=== PATIENT | female | born 1995 | race Caucasian/White ===

== ENCOUNTER 2019-09-16 14:31 | Observation (INO) | payer MEDICAID, SELFPAY | END 2019-09-17 09:05 | disposition home or self-care (01) | PROVIDERS: Admitting Provider Family Medicine; Family Provider Nurse Practitioner Family; Visit Provider Family Medicine | DX: O36.4XX0 Maternal care for intrauterine death, not applicable or unspecified (principal); Z3A.14 14 weeks gestation of pregnancy; Z23 Encounter for immunization ==

== ENCOUNTER 2020-03-14 13:58 | Emergency (ER) | payer MEDICAID, SELFPAY ==
[2020-03-14 14:19] VITALS: BP 138/91; PULSE 94; RESP 18; TEMP 36.6; O2SAT 97; BMI 37.1
--- NOTE | 2020-03-14 15:17 | ED_ITS ---
HPI - Headache General: Chief Complaint: Headache Stated Complaint: dizzy/headache Time Seen by Provider: 03/14/20 15:17 History of Present Illness: MD elicited complaint: headache Onset (ago): day(s) (4 days ago) Onset description: gradually Location: frontal and retro-orbital Severity: mild Pain scale (0-10): 4 Quality & Timing: aching and different than previous headaches Exacerbating factors: other (Headache is worse in the morning) Relieving factors: nothing Context: occurred at rest and other (Patient is also having numbness and tingling in both right and left hands.) Associated symptoms: Deny chest pain, fever(s), nausea, rash or vomiting Treatments prior to arrival: acetaminophen (Patient took Tylenol last night and it did not help.) Review of Systems Const: Denies: fever(s), chills or fatigue Eyes: Denies: change in vision or eye discomfort ENMT: Reports: nasal congestion (Mild); Denies: throat pain, odynophagia or nasal discharge Card: Denies: chest pain, palpitations, edema, swelling of feet/ankles, dyspnea on exertion or orthopnea Resp: Denies: dyspnea, productive cough or non-productive cough GI: Denies: abdominal pain, nausea, vomiting, diarrhea, constipation or hematochezia : Denies: flank pain, dysuria or hematuria Musc: Denies: neck pain, back pain or extremity swelling Skin/Breast: Denies: rash or new lesions Neuro: Reports: headache(s); Denies: numbness in extremities or weakness in extremities PFSH ED PFSH: Social History Smoking and tobacco status: never smoked Female Reproductive History: Date of last menstrual period: 03/07/20 Physical Exam Const: COMMON NORMALS: no acute distress, patient oriented x3 and alert GENERAL APPEARANCE: cooperative and comfortable HENMT: COMMON NORMALS: normocephalic HEAD & SCALP: normocephalic MOUTH: Normal oral and palatal mucosa present THROAT: posterior oropharynx normal and uvula midline Eye: COMMON NORMALS: Equal, round and reactive pupils present, EOMs intact bilaterally, conjunctivae normal and normal visual carlson by confrontation CONJUNCTIVA: Yes conjunctivae normal PUPIL: Yes Equal, round and reactive pupils present Neck/C-Spine: COMMON NORMALS: supple GENERAL: Yes normal visual inspection Resp: COMMON NORMALS: normal respiratory effort, No retractions, No use of accessory muscles and clear to auscultation bilaterally EFFORT & INSPECTION: Yes able to speak in complete sentences, No tachypneic and No respiratory distress AUSCULTATION: clear to auscultation bilaterally Cardio: COMMON NORMALS: regular rate, regular rhythm, S1 normal heart sound present, S2 normal heart sound present, No gallops present (Cardio), No clicks present (Cardio), No murmurs present (Cardio) and Peripheral pulses 2+ through out RATE: regular rate RHYTHM: regular rhythm HEART SOUNDS: S1 normal heart sound present and S2 normal heart sound present PERIPHERAL PULSES: Peripheral pulses 2+ throughout GI: COMMON NORMALS: Normal to inspection, nondistended, normoactive bowel sounds present, Soft to palpation, non-tender and no masses PALPATION: Yes Soft to palpation : COMMON NORMALS: Yes no CVA tenderness BLADDER/KIDNEY EXAM: Yes no CVA tenderness Back/Pelvis: COMMON NORMALS: no CVA tenderness Extremity: COMMON NORMALS: normal to inspection and no pedal edema Neuro: COMMON NORMALS: patient oriented x3, CN's II-XII intact bilaterally, moves all extremities, no focal motor deficits and no sensory deficits noted SENSORIUM/ORIENTATION: Yes alert SENSORY EXAM: Yes extremities (intact) MOTOR EXAM: 5/5 motor strength present throughout Skin: COMMON NORMALS: no rashes or lesions noted GENERAL SKIN EXAM: no rashes or lesions noted and dry skin Course Vital Signs: Vital signs: Vital Signs Temperature 97.8 F 03/14/20 14:19 Pulse Rate 94 03/14/20 14:19 Respiratory Rate 18 03/14/20 14:19 Blood Pressure 138/91 03/14/20 14:19 Pulse Oximetry 97 03/14/20 14:19 MDM - Headache Imaging Data^: CT Head: Attestation: I personally reviewed and interpreted this imaging study as follows: Radiologist's impression: [address] [address] [address] Scan Report Signed Patient: Mayda Johnston Unit #: [id number] : 1995 Age/Sex: 24 / F ADM Date: 03/14/20 Loc: ER Room/Bed: Attending Dr: Ordering Provider/Ordering MD: Walker Oliver Date of Service: 03/14/20 Procedure(s): CT head wo con* [id number] Accession Number(s): [id number] Report Number: [id number] PROCEDURE INFORMATION: Exam: CT Head Without Contrast Exam date and time: 03/14/2020 3:51 PM Age: 24 years old Clinical indication: Pain; Dizziness and visual disturbance and other: Bilat hand tingling; Headache; Additional info: Migraine with numbness/tingling in hands bilat TECHNIQUE: Imaging protocol: Computed tomography of the head without contrast. Axial, coronal and sagittal reformatted images were created and reviewed. Radiation optimization: All CT scans at this facility use at least one of these dose optimization techniques: automated exposure control; mA and/or kV adjustment per patient size (includes targeted exams where dose is matched to clinical indication); or iterative reconstruction. COMPARISON: No relevant prior studies available. RADIATION DOSE METRICS: Total DLP (mGy-cm): 854.79 FINDINGS: Brain: No CT evidence of acute intracranial hemorrhage or acute territorial infarction. No significant mass effect or midline shift. Basal cisterns patent. Ventricles: Normal in size and configuration. Bones/joints: No acute osseous abnormality. Sinuses: Minimal ethmoid mucosal thickening. Mastoid air cells: Grossly unremarkable. Soft tissues: Grossly unremarkable. CT/CT head wo con* [id number]: 1. No CT evidence of acute intracranial pathology. 2. Additional findings, as above. Radiation Dose CTDIVOL = (mGy): DLP = 854.79 (mGy-cm) Dictated By: Trav Borrego MD Signed By: Trav Borrego MD Signed Date/Time: 03/14/201633 DD/ 163 Discharge Plan Discharge Patient Disposition: Home, Self-Care Clinical Impression: Headache Qualifiers: Headache type: unspecified Headache chronicity pattern: acute headache Intractability: not intractable Qualified Code(s): R51 - Headache Condition: Stable Prescriptions: No Action fluoxetine 40 mg Capsule 40 mg PO DAILY RF: 0 Referrals: Camila Sen MD [Primary Care Provider] - Discharge Diet: Regular Discharge Activity: Resume usual activity Patient Instructions: Headache Activity Restrictions/Additional Instructions: Contact your PCP and schedule an appointment for reevaluation in 7 to 10 days. Go home and rest today and drink plenty of fluids. You can take Tylenol or ibuprofen to help with future headaches. As I discussed with you earlier, try taking an [id number] nasal decongestant and/or daily Zyrtec/Claritin. Coding Level of Care Code ED Pipe Puller for Blake Fwd Exam Comprehensive
--- NOTE | 2020-03-14 15:27 | CTR_ITS ---
PROCEDURE INFORMATION: Exam: CT Head Without Contrast Exam date and time: 03/14/2020 3:51 PM Age: 24 years old Clinical indication: Pain; Dizziness and visual disturbance and other: Bilat hand tingling; Headache; Additional info: Migraine with numbness/tingling in hands bilat TECHNIQUE: Imaging protocol: Computed tomography of the head without contrast. Axial, coronal and sagittal reformatted images were created and reviewed. Radiation optimization: All CT scans at this facility use at least one of these dose optimization techniques: automated exposure control; mA and/or kV adjustment per patient size (includes targeted exams where dose is matched to clinical indication); or iterative reconstruction. COMPARISON: No relevant prior studies available. RADIATION DOSE METRICS: Total DLP (mGy-cm): 854.79 FINDINGS: Brain: No CT evidence of acute intracranial hemorrhage or acute territorial infarction. No significant mass effect or midline shift. Basal cisterns patent. Ventricles: Normal in size and configuration. Bones/joints: No acute osseous abnormality. Sinuses: Minimal ethmoid mucosal thickening. Mastoid air cells: Grossly unremarkable. Soft tissues: Grossly unremarkable. CT/CT head wo con* [id number] IMPRESSION: 1. No CT evidence of acute intracranial pathology. 2. Additional findings, as above. Radiation Dose CTDIVOL = (mGy): DLP = 854.79 (mGy-cm)
[2020-03-14] MEDS: ketorolac 30 mg/mL INJ IVP (17:04)
[2020-03-14] MEDS: diphenhydrAMINE 50 mg/mL SDV 1mL 25 MG IVP (17:05)
[2020-03-14] MEDS: metoclopramide 5 mg/mL SDV 2 mL 10 MG IVP (17:05)
[2020-03-14] MEDS: sodium chloride 0.9% 1,000 ML 999 ML IV (17:05)
[2020-03-14] MEDS: dexamethasone 10 mg/mL INJ IVP (17:06)
--- NOTE | 2020-03-14 17:42 | PC.NURSE ---
Patient resting at this time. She reports her headache has improved
--- NOTE | 2020-03-14 17:43 | PC.NURSE ---
Patient to treatment room at this time. Assumed care.
[2020-03-14 18:06] VITALS: BP 120/75; PULSE 70; RESP 15; O2SAT 98
== END 2020-03-14 18:07 | disposition home or self-care (01) ==
PROVIDERS: Emergency Provider Physician Assistant; PCP Family Medicine
DX: R51 Headache (principal)
CPT/HCPCS: 12345; 70450; 96361; 96374; 96375; 99283; J1100; J1200; J1885; J2765; J7030

== ENCOUNTER → 2020-08-29 17:07 | Outpatient (BNVA) | payer SELFPAY | PROVIDERS: PCP Family Medicine | DX: M54.9 Dorsalgia, unspecified (principal); R11.0 Nausea; N39.0 Urinary tract infection, site not specified; R31.9 Hematuria, unspecified | CPT/HCPCS: 81000 ==

== ENCOUNTER 2021-03-21 18:43 | Emergency (ER) | payer MEDICAID, SELFPAY ==
[2021-03-21 18:47] VITALS: BP 130/86; PULSE 97; RESP 16; TEMP 36.8; O2SAT 98; BMI 40.0
== END 2021-03-21 20:53 | disposition left against medical advice (07) ==
DX: Z53.21 Procedure and treatment not carried out due to patient leaving prior to being seen by health care provider (principal)
CPT/HCPCS: 99282

== ENCOUNTER 2021-03-25 19:26 | Emergency (ER) | payer MEDICAID, SELFPAY ==
[2021-03-25 20:36] VITALS: BP 143/80; PULSE 75; RESP 15; TEMP 36.6; O2SAT 98; BMI 40.3
[2021-03-25 22:42] VITALS: BP 137/88; PULSE 76; RESP 16; O2SAT 98
--- NOTE | 2021-03-25 23:12 | USR_ITS ---
PROCEDURE INFORMATION: Exam: US , Transvaginal Exam date and time: 03/25/2021 11:12 PM Age: 25 years old Clinical indication: Lmp or gestational age (in weeks): 6w0d; Antepartum complications; Bleeding; ; Patient HX: ; Additional info: 5 weeks vag bleeding TECHNIQUE: Imaging protocol: Real-time transvaginal obstetrical ultrasound of the maternal pelvis with image documentation. Transvaginal imaging was used for better evaluation of the fetus, adnexa, and/or cervix. COMPARISON: US OB Limited [id number] 09/16/2019 3:05 PM FINDINGS: Gestation: Gestational sac is present. Yolk sac is present. Gestational sac diameter is 1.01 cm. heart rate: The no heart rate. BIOMETRY: Parks-Rump length: There is a pole with a crown-rump length of 0.33 cm. MATERNAL: Right adnexa: Right ovary is normal and measures 2.6 x 1.4 x 2.1 cm. Technologist unable to obtain blood flow at this time. Left adnexa: Left ovary is not visualized. Intraperitoneal space: No free fluid. US/US OB transvaginal [id number] IMPRESSION: 1. Gestational sac is present containing a yolk sac and a pole. Estimated gestational age is 6 weeks/0 days. No heart rate at this time. Consider follow-up examination in 7-10 days. 2. Technologist reports inability to obtain blood flow in the right ovary at this time. However, the ovary is not enlarged or abnormal in appearance. No associated free fluid.
[2021-03-25 23:25] LABS: Add Urine Culture? Yes; Add Urine Microscopic? YES; Bacteria Urine 3+ /hpf; Bilirubin Urine 1+ (Negative); Blood Urine Neg (Negative); Glucose Urine UA Norm (Normal); Ketones Urine 1+ (Negative); Leukocyte Esterase Urine Trace (Negative); Nitrate Urine Negative (Negative); Protein Urine Neg (Negative); RBC Urine 0-4 /hpf (0-2); Urine Appearance SL Hazy (CLEAR); Urine Color Yellow (Yellow); Urobilinogen Urine Norm (Negative); pH Urine 5 (5-7)
--- NOTE | 2021-03-25 23:48 | W.ED.PREGNAN ---
HPI - General: Chief complaint: Vaginal Bleeding Stated complaint: vag bleeding, 5 weeks preg Time Seen by Provider: 03/25/21 23:04 History of Present Illness: HPI Narrative: 25-year-old G5, P1 at 5 weeks of presents with 5 days of vaginal bleeding on and off. The bleeding is small amounts. She has some associated cramping. At first it was bright red, now it is darker. She saw a physician on Friday, and had been placed on progesterone. It seemed to stop for a couple of days, but then came back. She denies any fever. She denies other vaginal discharge. MD Complaint: vaginal bleeding Onset (ago): day(s) (5 on and off) Pain Consistency: intermittent Location: pelvis Severity: moderate Quality: Cramping Radiation: pelvis Relieving factors: none Exacerbating factors: none Vaginal discharge: none Vaginal bleeding: light Date of Last Menstrual Period: 02/15/21 Patient : Yes Number of Weeks : 5 OB History - Previous Pregnancies: miscarriage care: other Associated symptoms: Reports nausea; Deny dysuria, syncope, vaginal discharge or vomiting Review of Systems Const: Denies: fever(s) or chills Card: Denies: syncope Resp: Denies: dyspnea GI: Reports: nausea; Denies: vomiting : Denies: dysuria or vaginal discharge PFSH ED PFSH: Social History Smoking and tobacco status: never smoked Female Reproductive History: Date of last menstrual period: 02/15/21 Physical Exam Const: COMMON NORMALS: no acute distress, patient oriented x3 and alert HENMT: COMMON NORMALS: normocephalic HEAD & SCALP: normocephalic Resp: COMMON NORMALS: normal respiratory effort, No use of accessory muscles and clear to auscultation bilaterally AUSCULTATION: clear to auscultation bilaterally Cardio: COMMON NORMALS: regular rate and regular rhythm RATE: regular rate RHYTHM: regular rhythm GI: COMMON NORMALS: Normal to inspection, nondistended, normoactive bowel sounds present and Soft to palpation PALPATION: Yes Soft to palpation and Yes Tenderness to palpation present (GI) (suprapubic) Neuro: COMMON NORMALS: patient oriented x3 SENSORIUM/ORIENTATION: Yes alert Procedures Perimortem Number of Weeks : 5 Course Vital Signs: Vital signs: Vital Signs Temperature 98 F 03/25/21 20:36 Pulse Rate 80 03/26/21 02:11 Respiratory Rate 18 03/26/21 02:11 Blood Pressure 140/76 03/26/21 02:11 Pulse Oximetry 98 03/25/21 22:42 MDM - OB/Uterine Contractions MDM Narrative: Medical decision making narrative: Ultrasound reveals a 6-week intrauterine consistent with dates. Quant is appropriate. Her potassium is mildly low. She was told to push fluids. Potassium repleted. No cause of vaginal bleeding identified. She will be allowed home on pelvic rest. Lab Data: Labs: Lab Results 03/25/21 03/25/21 03/25/21 Range/Units 23:01 23:35 23:35 WBC 6.8 (4.0-10.0) 10^3/ uL RBC 4.68 (4.1-5.3) 10^6/u L Hgb 11.6 (11.5-15.3) g/dL Hct 36.9 L (37.0-47.0) % MCV 78.8 L (81-99) fL MCH 24.8 L (28.0-34.0) pg MCHC 31.4 (30.0-36.0) g/dL RDW 14.9 (12.1-15.1) % Plt Count 283 (130-400) 10^3/c mm MPV 10.7 H (7.4-10.4) fL Neut % (Auto) 55.0 % Lymph % (Auto) 35.9 % Mccracken % (Auto) 5.6 % Eos % (Auto) 2.8 % Baso % (Auto) 0.4 % Neut # (Auto) 3.76 (1.8-7.7) 10^3/u L Lymph # (Auto) 2.5 (0.8-4.8) 10^3/u L Mccracken # (Auto) 0.4 (0.2-0.9) 10^3/u L Eos # (Auto) 0.2 (0.0-0.8) 10^3/u L Baso # (Auto) 0.0 (0.0-0.1) 10^3/u L Nucleated RBC % (a uto) 0 % Nucleated RBCs # 0.0 /100WBC Sodium Cancelled Potassium Cancelled Chloride Cancelled Carbon Dioxide Cancelled Anion Gap Cancelled BUN Cancelled Creatinine Cancelled GFR Calculation Cancelled Glucose Cancelled Calculated Osmolal ity Cancelled Calcium Cancelled Total Bilirubin Cancelled AST Cancelled ALT Cancelled Alkaline Phosphata se Cancelled Total Protein Cancelled Albumin Cancelled Globulin Cancelled Ser , Tiny i-Qnt Cancelled Urine Color Yellow (Yellow) Urine Appearance Sl hazy (CLEAR) Urine pH 5 (5-7) Ur Specific Gravit y 1.030 (1.005-1.030) Urine Protein Neg (Negative) Urine Glucose (UA) Norm (Normal) Urine Ketones 1+ H (Negative) Urine Blood Neg (Negative) Urine Nitrate Negative (Negative) Urine Bilirubin 1+ H (Negative) Urine Urobilinogen Norm (Negative) mg/dL Ur Leukocyte Rossi ase Trace H (Negative) Urine RBC 0-4 H (0-2) /hpf Urine WBC 5-10 H (0-5) /hpf Ur Squamous Epith Cells 5-10 H (0-5) /hpf Amorphous Sediment Not Reportable Urine Bacteria 3+ H (NONE) /hpf Blood Type Rho(D) Type 03/25/21 03/26/21 Range/Units 23:35 00:35 WBC (4.0-10.0) 10^3/ uL RBC (4.1-5.3) 10^6/u L Hgb (11.5-15.3) g/dL Hct (37.0-47.0) % MCV (81-99) fL MCH (28.0-34.0) pg MCHC (30.0-36.0) g/dL RDW (12.1-15.1) % Plt Count (130-400) 10^3/c mm MPV (7.4-10.4) fL Neut % (Auto) % Lymph % (Auto) % Mccracken % (Auto) % Eos % (Auto) % Baso % (Auto) % Neut # (Auto) (1.8-7.7) 10^3/u L Lymph # (Auto) (0.8-4.8) 10^3/u L Mccracken # (Auto) (0.2-0.9) 10^3/u L Eos # (Auto) (0.0-0.8) 10^3/u L Baso # (Auto) (0.0-0.1) 10^3/u L Nucleated RBC % (a uto) % Nucleated RBCs # /100WBC Sodium 142 Potassium 3.2 L Chloride 111 H Carbon Dioxide 20 L Anion Gap 14.2 BUN 8 Creatinine 0.4 L GFR Calculation 194.5 H Glucose 85 Calculated Osmolal ity 292 Calcium 8.0 L Total Bilirubin 0.2 AST 15 ALT 24 Alkaline Phosphata se 55 Total Protein 6.3 L Albumin 3.7 Globulin 2.6 Ser , Tiny i-Qnt 7492.00 Urine Color (Yellow) Urine Appearance (CLEAR) Urine pH (5-7) Ur Specific Gravit y (1.005-1.030) Urine Protein (Negative) Urine Glucose (UA) (Normal) Urine Ketones (Negative) Urine Blood (Negative) Urine Nitrate (Negative) Urine Bilirubin (Negative) Urine Urobilinogen (Negative) mg/dL Ur Leukocyte Rossi ase (Negative) Urine RBC (0-2) /hpf Urine WBC (0-5) /hpf Ur Squamous Epith Cells (0-5) /hpf Amorphous Sediment Urine Bacteria (NONE) /hpf Blood Type A Positive Rho(D) Type Positive / 4+ Discharge Plan Discharge Patient Disposition: Home Clinical Impression: Threatened , Hypokalemia Condition: Stable Prescriptions: No Action nitrofurantoin macrocrystal 100 mg capsule 100 mg PO BID 7 Days Qty: 14 RF: 0 ondansetron 4 mg tablet,disintegrating 4 mg PO Q6H PRN (Reason: nausea and vomiting) Qty: 12 RF: 0 phenazopyridine [Pyridium] 100 mg tablet 100 mg PO TID Qty: 6 RF: 0 fluoxetine 40 mg Capsule 40 mg PO DAILY RF: 0 Discharge Orders: Discharge ED (Routine); Ordered 03/26/21 Ordered By: Peng Black Discharge Diet: Advance as tolerated Discharge Activity: Limit activity as instructed Activity Restrictions/Additional Instructions: Stay hydrated by pushing fluids for the next 24 to 48 hours. Pelvic rest, meaning no intercourse, no lifting greater than 10 to 15 pounds, and limiting squatting until seen by your doctor. Return for increased vaginal bleeding, soaking 1 pad per hour for more than 3 hours, fever greater than 100, vomiting liquids or medications, other concerning symptoms. You should see your doctor in 48 hours or so to have your blood level checked again Coding Level of Care Code ED Infantry Senior Sergeant for Chg Fwd Exam Detailed
[2021-03-25 23:53] LABS: Basophils % 0.4 %; Eosinophils # 0.2 10^3/uL (0.0-0.8); Eosinophils % 2.8 %; Hematocrit 36.9 % (37.0-47.0); Hemoglobin 11.6 g/dL (11.5-15.3); Lymphocytes # 2.5 10^3/uL (0.8-4.8); Lymphocytes % 35.9 %; Mean Corpuscular HGB Conc 31.4 g/dL (30.0-36.0); Mean Corpuscular Hemoglobin 24.8 pg (28.0-34.0); Mean Corpuscular Volume 78.8 fL (81-99); Mean Platelet Volume 10.7 fL (7.4-10.4); Monocytes # 0.4 10^3/uL (0.2-0.9); Monocytes % 5.6 %; Neutrophils # 3.76 10^3/uL (1.8-7.7); Nucleated Red Blood Cells % 0 %; Platelet Count 283 10^3/cmm (130-400); Red Blood Count 4.68 10^6/uL (4.1-5.3); Red Cell Distribution Width 14.9 % (12.1-15.1); White Blood Count 6.8 10^3/uL (4.0-10.0)
[2021-03-26 01:15] LABS: Alanine Aminotransferase 24 U/L (0-33); Albumin Level 3.7 g/dL (3.5-5.2); Alkaline Phosphatase 55 IU/L (35-105); Anion Gap 14.2 (5-19); Aspartate Amino Transferase 15 U/L (0-32); Blood Urea Nitrogen 8 mg/dL (6-20); Carbon Dioxide 20 mmol/L (22-29); Chloride 111 mmol/L (98-107); Globulin 2.6 g/dL (1.3-4.6); Glomerular Filtration Rate 194.5 mL/min (90-130); Glucose 85 mg/dL (65-115); Osmolality Calculated 292 mOsm/kg (285-295); Potassium 3.2 mmol/L (3.5-5.1); Sodium 142 mmol/L (136-145); Total Bilirubin 0.2 mg/dL (0.15-1.2); Total Protein 6.3 g/dL (6.6-8.7)
[2021-03-26 02:11] VITALS: BP 140/76; PULSE 80; RESP 18
== END 2021-03-26 02:13 | disposition home or self-care (01) ==
PROVIDERS: Nurse Practitioner Family; Emergency Provider Emergency Medicine
DX: O20.0 Threatened abortion (principal); E87.5 Hyperkalemia; O26.891 Other specified pregnancy related conditions, first trimester; Z3A.01 Less than 8 weeks gestation of pregnancy
CPT/HCPCS: 76817; 80053; 81001; 84702; 85025; 86900; 87077; 87086; 87186; 99283

== ENCOUNTER 2021-06-19 22:20 | Emergency (ER) | payer MEDICAID, SELFPAY ==
[2021-06-19 23:02] VITALS: BP 155/86; PULSE 91; RESP 20; TEMP 36.9; O2SAT 99; BMI 40.2
--- NOTE | 2021-06-19 23:23 | W.ED.ABDPA2 ---
Documented by User: BRANDON Nielsen 06/20/21 00:39 HPI - Abdominal Pain General: Chief Complaint: Abdominal Pain Stated Complaint: 18 Weeks Preg\Abd Pain Time Seen by Provider: 06/19/21 23:23 History of Present Illness: HPI narrative: 25-year-old female comes in today with complaints of left flank pain. Patient reports for the last 2 days she has had pain in the left flank radiating around to her abdomen. Patient did have a UTI about 1 week ago. Patient is 18 weeks . Patient denies any vaginal bleeding or vaginal discharge. Patient appears well. Patient appears in mild to moderate pain. Related Data: Date of Last Menstrual Period: 02/15/21 Review of Systems General: Reports: 10 or more systems reviewed and unremarkable except in HPI and below : Reports: flank pain [facility] ED PFSH: Medical History (Updated 06/20/21 @ 00:36 by BRANDON Nielsen) Psychiatric care Social History Smoking and tobacco status: never smoked Female Reproductive History: Date of last menstrual period: 02/15/21 Physical Exam Const: COMMON NORMALS: no acute distress and patient oriented x3 GENERAL APPEARANCE: cooperative HENMT: COMMON NORMALS: normocephalic and Normal external nose present HEAD & SCALP: normal to inspection and normocephalic NOSE: Normal external nose present MOUTH: Normal oral and palatal mucosa present Eye: GENERAL EYE: appearance normal, both eyes and all related structures Neck/C-Spine: COMMON NORMALS: full ROM Lymph: LYMPHATIC: no lymphadenopathy noted Chest: COMMONS NORMALS: normal inspection of the chest Resp: COMMON NORMALS: normal respiratory effort EFFORT & INSPECTION: Yes able to speak in complete sentences Cardio: COMMON NORMALS: regular rate and regular rhythm RATE: regular rate RHYTHM: regular rhythm GI: COMMON NORMALS: non-tender : BLADDER/KIDNEY EXAM: Yes CVA tenderness on the left Back/Pelvis: COMMON NORMALS: thoracic and lumbar spine normal to inspection GENERAL BACK: Yes CVA tenderness Extremity: COMMON NORMALS: normal to inspection Neuro: COMMON NORMALS: patient oriented x3 and moves all extremities Psych: COMMON NORMALS: mental status grossly normal and cooperative Skin: COMMON NORMALS: no rashes or lesions noted GENERAL SKIN EXAM: no rashes or lesions noted Course Vital Signs: Vital signs: Vital Signs Temperature 98.4 F 06/19/21 23:02 Pulse Rate 85 06/20/21 00:58 Respiratory Rate 20 H 06/19/21 23:02 Blood Pressure 155/86 06/19/21 23:02 Pulse Oximetry 98 06/20/21 00:58 MDM - Abdominal Pain MDM Narrative: Medical decision making narrative: Patient presents today with some left flank pain starting last night. Patient is 18 weeks . Patient appears well. Patient reports that she has been on some Macrodantin for the last 3 to 4 days for a urinary tract infection. Patient reports movement exacerbates pain. Skin is warm and dry. Vital signs are normal. Differential diagnosis includes but not limited to round ligament pain, muscle strain, renal calculi, pyelonephritis. Laboratory values are unremarkable. Urinalysis has a large amount of skin cells but does also have traces of white blood cells and red blood cells. Ultrasound of the kidneys indicated no hydronephrosis or signs of stones. Patient is really tender in that area on palpation I suspect she has a muscle strain versus some round ligament pain. I encouraged patient to drink plenty of fluids she may use Tylenol as needed for breakthrough pain. I discussed red flags for return to the ER. Patient reported understanding and agreed to plan. Lab Data: Labs: Lab Results 06/19/21 06/19/21 06/19/21 23:59 23:59 23:59 WBC 9.0 10^3/uL 10^3/ uL (4.0-10.0) RBC 4.43 10^6/uL 10^6 /uL (4.1-5.3) Hgb 11.5 g/dL g/dL (11.5-15.3) Hct 35.0 % L % (37.0-47.0) MCV 79.0 fl L fl (81-99) MCH 26.0 pg L pg (28.0-34.0) MCHC 32.9 g/dL g/dL (30.0-36.0) RDW 15.0 % % (12.1-15.1) Plt Count 256 10^3/cmm 10^3 /cmm (130-400) MPV 10.5 fL H fL (7.4-10.4) Neut % (Auto) 64.3 % % Lymph % (Auto) 28.4 % % [place] % (Auto) 5.9 % % Eos % (Auto) 0.8 % % Baso % (Auto) 0.3 % % Neut # (Auto) 5.81 10^3/uL 10^3 /uL (1.8-7.7) Lymph # (Auto) 2.6 10^3/uL 10^3/ uL (0.8-4.8) [place] # (Auto) 0.5 10^3/uL 10^3/ uL (0.2-0.9) Eos # (Auto) 0.1 10^3/uL 10^3/ uL (0.0-0.8) Baso # (Auto) 0.0 10^3/uL 10^3/ uL (0.0-0.1) Nucleated RBC % (a uto) 0 % % Nucleated RBCs # 0.0 /100WBC /100W BC Sodium 137 mmol/L mmol/L (136-145) Potassium 3.4 mmol/L L mmol /L (3.5-5.1) Chloride 103 mmol/L mmol/L (98-107) Carbon Dioxide 22 mmol/L mmol/L (22-29) Anion Gap 15.4 (5-19) BUN 4 mg/dL L mg/dL (6-20) Creatinine 0.2 mg/dL L mg/dL (0.5-0.9) GFR Calculation 432.8 mL/min H mL /min (90-130) Glucose 91 mg/dL mg/dL (65-115) Calculated Osmolal ity 280 mOsm/kg L mOs m/kg (285-295) Calcium 9.3 mg/dL mg/dL (8.5-10.5) Total Bilirubin 0.2 mg/dL mg/dL (0.15-1.2) AST 10 U/L U/L (0-32) ALT 11 U/L U/L (0-33) Alkaline Phosphata se 64 IU/L IU/L (35-105) Total Protein 7.2 g/dL g/dL (6.6-8.7) Albumin 3.6 g/dL g/dL (3.5-5.2) Globulin 3.6 g/dL g/dL (1.3-4.6) Lipase 21 U/L U/L (13-60) Urine Color Corrine (Yellow) Urine Appearance Clear (CLEAR) Urine pH 5 (5-7) Ur Specific Gravit y 1.030 (1.005-1.030) Urine Protein Neg (Negative) Urine Glucose (UA) Norm (Normal) Urine Ketones 1+ H (Negative) Urine Blood Neg (Negative) Urine Nitrate Negative (Negative) Urine Bilirubin 1+ H (Negative) Urine Urobilinogen 1 mg/dL H mg/dL (Negative) Ur Leukocyte Rossi ase Trace H (Negative) Urine RBC 5-10 /hpf H /hpf (0-2) Urine WBC 0-4 /hpf H /hpf (0-5) Ur Squamous Epith Cells 10-15 /hpf H /hpf (0-5) Amorphous Sediment 2+ /hpf /hpf Urine Bacteria 2+ /hpf H /hpf (NONE) Urine Mucus 1+ /hpf /hpf Discharge Plan Discharge Patient Disposition: Home Clinical Impression: Left flank pain, Second trimester Condition: Stable Prescriptions: No Action nitrofurantoin macrocrystal 100 mg capsule 100 mg PO BID 7 Days Qty: 14 RF: 0 ondansetron 4 mg tablet,disintegrating 4 mg PO Q6H PRN (Reason: nausea and vomiting) Qty: 12 RF: 0 phenazopyridine [Pyridium] 100 mg tablet 100 mg PO TID Qty: 6 RF: 0 fluoxetine 40 mg Capsule 40 mg PO DAILY RF: 0 Discharge Orders: Discharge ED (Routine); Ordered 06/20/21 Ordered By: Deshawn Du Discharge Diet: Usual diet Discharge Activity: Increase activity as tolerated Patient Instructions: Abdominal Pain (ED), Opioid Safety Activity Restrictions/Additional Instructions: Plenty of fluids. Monitor for blood in vomit or stool. Monitor for high fever greater than 100.4. If you have any of these symptoms please return to the ER. Follow-up with primary care as needed. Return to the ER for new concerns or worsening symptoms. Stand Alone Forms: Work/School Release Coding Level of Care Code ED Marketing Writer for [employer] Fwd Exam Comprehensive Documented by User: Karma Monaco MD 06/20/21 05:29 HPI - Abdominal Pain General: Chief Complaint: Abdominal Pain Stated Complaint: 18 Weeks Preg\Abd Pain Time Seen by Provider: 06/19/21 23:23 [facility] ED [facility]: Medical History (Updated 06/20/21 @ 00:36 by BRANDON Nielsen) Psychiatric care Social History Smoking and tobacco status: never smoked Course Vital Signs: Vital signs: Vital Signs Temperature 98.4 F 06/19/21 23:02 Pulse Rate 85 06/20/21 00:58 Respiratory Rate 20 H 06/19/21 23:02 Blood Pressure 155/86 06/19/21 23:02 Pulse Oximetry 98 06/20/21 00:58 MDM - Abdominal Pain Lab Data: Labs: Lab Results 06/19/21 06/19/21 06/19/21 23:59 23:59 23:59 WBC 9.0 10^3/uL 10^3/ uL (4.0-10.0) RBC 4.43 10^6/uL 10^6 /uL (4.1-5.3) Hgb 11.5 g/dL g/dL (11.5-15.3) Hct 35.0 % L % (37.0-47.0) MCV 79.0 fl L fl (81-99) MCH 26.0 pg L pg (28.0-34.0) MCHC 32.9 g/dL g/dL (30.0-36.0) RDW 15.0 % % (12.1-15.1) Plt Count 256 10^3/cmm 10^3 /cmm (130-400) MPV 10.5 fL H fL (7.4-10.4) Neut % (Auto) 64.3 % % Lymph % (Auto) 28.4 % % [place] % (Auto) 5.9 % % Eos % (Auto) 0.8 % % Baso % (Auto) 0.3 % % Neut # (Auto) 5.81 10^3/uL 10^3 /uL (1.8-7.7) Lymph # (Auto) 2.6 10^3/uL 10^3/ uL (0.8-4.8) [place] # (Auto) 0.5 10^3/uL 10^3/ uL (0.2-0.9) Eos # (Auto) 0.1 10^3/uL 10^3/ uL (0.0-0.8) Baso # (Auto) 0.0 10^3/uL 10^3/ uL (0.0-0.1) Nucleated RBC % (a uto) 0 % % Nucleated RBCs # 0.0 /100WBC /100W BC Sodium 137 mmol/L mmol/L (136-145) Potassium 3.4 mmol/L L mmol /L (3.5-5.1) Chloride 103 mmol/L mmol/L (98-107) Carbon Dioxide 22 mmol/L mmol/L (22-29) Anion Gap 15.4 (5-19) BUN 4 mg/dL L mg/dL (6-20) Creatinine 0.2 mg/dL L mg/dL (0.5-0.9) GFR Calculation 432.8 mL/min H mL /min (90-130) Glucose 91 mg/dL mg/dL (65-115) Calculated Osmolal ity 280 mOsm/kg L mOs m/kg (285-295) Calcium 9.3 mg/dL mg/dL (8.5-10.5) Total Bilirubin 0.2 mg/dL mg/dL (0.15-1.2) AST 10 U/L U/L (0-32) ALT 11 U/L U/L (0-33) Alkaline Phosphata se 64 IU/L IU/L (35-105) Total Protein 7.2 g/dL g/dL (6.6-8.7) Albumin 3.6 g/dL g/dL (3.5-5.2) Globulin 3.6 g/dL g/dL (1.3-4.6) Lipase 21 U/L U/L (13-60) Urine Color Corrine (Yellow) Urine Appearance Clear (CLEAR) Urine pH 5 (5-7) Ur Specific Gravit y 1.030 (1.005-1.030) Urine Protein Neg (Negative) Urine Glucose (UA) Norm (Normal) Urine Ketones 1+ H (Negative) Urine Blood Neg (Negative) Urine Nitrate Negative (Negative) Urine Bilirubin 1+ H (Negative) Urine Urobilinogen 1 mg/dL H mg/dL (Negative) Ur Leukocyte Rossi ase Trace H (Negative) Urine RBC 5-10 /hpf H /hpf (0-2) Urine WBC 0-4 /hpf H /hpf (0-5) Ur Squamous Epith Cells 10-15 /hpf H /hpf (0-5) Amorphous Sediment 2+ /hpf /hpf Urine Bacteria 2+ /hpf H /hpf (NONE) Urine Mucus 1+ /hpf /hpf Discharge Plan Discharge Patient Disposition: Home Clinical Impression: Left flank pain, Second trimester Condition: Stable Prescriptions: No Action nitrofurantoin macrocrystal 100 mg capsule 100 mg PO BID 7 Days Qty: 14 RF: 0 ondansetron 4 mg tablet,disintegrating 4 mg PO Q6H PRN (Reason: nausea and vomiting) Qty: 12 RF: 0 phenazopyridine [Pyridium] 100 mg tablet 100 mg PO TID Qty: 6 RF: 0 fluoxetine 40 mg Capsule 40 mg PO DAILY RF: 0 Discharge Orders: Discharge ED (Routine); Ordered 06/20/21 Ordered By: Deshawn Du Discharge Diet: Usual diet Discharge Activity: Increase activity as tolerated Patient Instructions: Abdominal Pain (ED), Opioid Safety Activity Restrictions/Additional Instructions: Plenty of fluids. Monitor for blood in vomit or stool. Monitor for high fever greater than 100.4. If you have any of these symptoms please return to the ER. Follow-up with primary care as needed. Return to the ER for new concerns or worsening symptoms. 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
[2021-06-20 00:02] LABS: Basophils % 0.3 %; Eosinophils # 0.1 10^3/uL (0.0-0.8); Eosinophils % 0.8 %; Hemoglobin 11.5 g/dL (11.5-15.3); Lymphocytes # 2.6 10^3/uL (0.8-4.8); Lymphocytes % 28.4 %; Mean Corpuscular HGB Conc 32.9 g/dL (30.0-36.0); Mean Platelet Volume 10.5 fL (7.4-10.4); Monocytes # 0.5 10^3/uL (0.2-0.9); Monocytes % 5.9 %; Neutrophils # 5.81 10^3/uL (1.8-7.7); Neutrophils % 64.3 %; Nucleated Red Blood Cells % 0 %; Platelet Count 256 10^3/cmm (130-400); Red Blood Count 4.43 10^6/uL (4.1-5.3)
--- NOTE | 2021-06-20 00:13 | USR_ITS ---
PROCEDURE INFORMATION: Exam: US Retroperitoneal; Complete; Kidneys and Bladder Exam date and time: 06/20/2021 12:13 AM Age: 25 years old Clinical indication: Abdominal pain; ; Additional info: Left flank pain, concern for calculi, 18 weeks preg TECHNIQUE: Imaging protocol: Real-time ultrasound of the retroperitoneum with image documentation. Complete exam focused on the kidneys and bladder. COMPARISON: US Abdomen* [id number] 10/01/2016 7:29 AM FINDINGS: The right kidney measures 11.4 cm in length. The left kidney measures 11.4. cm in length. There is no significant hydronephrosis or perinephric fluid. Neither ureter is visible or dilated. The renal parenchymal thickness and echogenicity are within normal limits. There is no sonographically visible renal calculus, mass, or cyst. The urinary bladder is almost empty, limiting evaluation at this time. US/US renal BI* [id number] IMPRESSION: 1. Essentially unremarkable sonographic appearance of the kidneys, no significant hydronephrosis. 2. Other details/findings discussed above.
[2021-06-20 00:17] LABS: Urine Appearance Clear (CLEAR); Urine Color Amber (Yellow); pH Urine 5 (5-7)
[2021-06-20 00:18] LABS: Add Urine Culture? No; Add Urine Microscopic? YES; Amorphous Sediment Urine 2+ /hpf; Bacteria Urine 2+ /hpf; Bilirubin Urine 1+ (Negative); Blood Urine Neg (Negative); Glucose Urine UA Norm (Normal); Ketones Urine 1+ (Negative); Leukocyte Esterase Urine Trace (Negative); Mucus Urine 1+ /hpf; Nitrate Urine Negative (Negative); Protein Urine Neg (Negative); Urobilinogen Urine 1 mg/dL (Negative); WBC Urine 0-4 /hpf (0-5)
[2021-06-20 00:29] LABS: Alanine Aminotransferase 11 U/L (0-33); Albumin Level 3.6 g/dL (3.5-5.2); Alkaline Phosphatase 64 IU/L (35-105); Anion Gap 15.4 (5-19); Aspartate Amino Transferase 10 U/L (0-32); Blood Urea Nitrogen 4 mg/dL (6-20); Calcium 9.3 mg/dL (8.5-10.5); Carbon Dioxide 22 mmol/L (22-29); Chloride 103 mmol/L (98-107); Globulin 3.6 g/dL (1.3-4.6); Glomerular Filtration Rate 432.8 mL/min (90-130); Glucose 91 mg/dL (65-115); Lipase 21 U/L (13-60); Osmolality Calculated 280 mOsm/kg (285-295); Potassium 3.4 mmol/L (3.5-5.1); Sodium 137 mmol/L (136-145); Total Bilirubin 0.2 mg/dL (0.15-1.2); Total Protein 7.2 g/dL (6.6-8.7)
[2021-06-20 00:58] VITALS: PULSE 85; O2SAT 98
== END 2021-06-20 01:02 | disposition home or self-care (01) ==
PROVIDERS: Emergency Medicine; Emergency Provider Nurse Practitioner Family
DX: O26.892 Other specified pregnancy related conditions, second trimester (principal); R10.9 Unspecified abdominal pain; Z3A.18 18 weeks gestation of pregnancy
CPT/HCPCS: 76770; 80053; 81001; 81003; 83690; 85025; 99283

== ENCOUNTER 2021-09-11 12:03 | Outpatient (CLI) | payer MEDICAID, SELFPAY ==
[2021-09-11 12:20] VITALS: BMI 41.0
[2021-09-11 12:21] VITALS: RESP 18; TEMP 36.6
[2021-09-11 12:28] VITALS: BP 128/81; PULSE 91
[2021-09-11 12:58] VITALS: BP 116/70; PULSE 88
[2021-09-11 13:16] VITALS: BP 116/70; PULSE 88
[2021-09-11 13:29] LABS: Total Volume, Urine 2400 mL
[2021-09-11 13:42] LABS: Urine Total Protein 6.3 mg/24HR (0-150); Urine Total Protein 24 Hour 151.2 mg/dL (0-150)
--- NOTE | 2021-09-11 13:50 | PC.NURSE ---
DR JOAQUIN CALLED WITH 24 HOUR URINE PROTEIN RESULT. NO FURTHER ORDERS
== END 2021-09-11 13:16 | disposition home or self-care (01) ==
LOC: OPOB 12:12 → OBGYN 12:13
PROVIDERS: Visit Provider Family Medicine
DX: O16.9 Unspecified maternal hypertension, unspecified trimester (principal); Z3A.00 Weeks of gestation of pregnancy not specified
CPT/HCPCS: 59025; 84156; 99211

== ENCOUNTER 2021-09-25 15:42 | Outpatient (CLI) | payer MEDICAID, SELFPAY ==
[2021-09-25 16:00] VITALS: BP 134/82; PULSE 96; TEMP 35.9
[2021-09-25 16:01] VITALS: RESP 16
[2021-09-25 16:05] VITALS: BMI 41.6
[2021-09-25 16:20] VITALS: BP 143/86; PULSE 106
== END 2021-09-25 16:31 | disposition home or self-care (01) ==
LOC: OPOB 15:50 → OBGYN 15:51
PROVIDERS: Visit Provider Family Medicine
DX: O16.9 Unspecified maternal hypertension, unspecified trimester (principal); Z3A.00 Weeks of gestation of pregnancy not specified
CPT/HCPCS: 59025; 99211

== ENCOUNTER 2021-09-28 16:20 | Outpatient (CLI) | payer MEDICAID, SELFPAY ==
[2021-09-28 16:42] VITALS: BP 140/89; PULSE 87
[2021-09-28 16:46] VITALS: RESP 18; TEMP 36.5
[2021-09-28 16:57] VITALS: BP 140/89; PULSE 88
== END 2021-09-28 17:10 | disposition home or self-care (01) ==
LOC: OPOB 16:28 → OBGYN 16:29
PROVIDERS: Visit Provider Family Medicine
DX: O16.9 Unspecified maternal hypertension, unspecified trimester (principal); Z3A.00 Weeks of gestation of pregnancy not specified
CPT/HCPCS: 59025; 99211

== ENCOUNTER 2021-10-02 12:30 | Outpatient (CLI) | payer MEDICAID, SELFPAY ==
[2021-10-02] VITALS (11 sets, daily range): BP systolic 122–164; BP diastolic 72–95; PULSE 82–102; BMI 42.9
[2021-10-02 14:34] LABS: Basophils % 0.1 %; Eosinophils # 0.1 10^3/uL (0.0-0.8); Eosinophils % 0.6 %; Hematocrit 29.7 % (37.0-47.0); Hemoglobin 9.7 g/dL (11.5-15.3); Lymphocytes # 1.5 10^3/uL (0.8-4.8); Lymphocytes % 19.2 %; Mean Corpuscular HGB Conc 32.7 g/dL (30.0-36.0); Mean Corpuscular Hemoglobin 25.6 pg (28.0-34.0); Mean Corpuscular Volume 78.4 fl (81-99); Mean Platelet Volume 10.4 fL (7.4-10.4); Monocytes # 0.5 10^3/uL (0.2-0.9); Monocytes % 6.2 %; Neutrophils # 5.83 10^3/uL (1.8-7.7); Neutrophils % 73.5 %; Nucleated Red Blood Cells % 0 %; Platelet Count 199 10^3/cmm (130-400); Red Blood Count 3.79 10^6/uL (4.1-5.3); Red Cell Distribution Width 14.5 % (12.1-15.1); White Blood Count 7.9 10^3/uL (4.0-10.0)
[2021-10-02 14:45] LABS: Glucose Urine UA Norm (Normal); Ketones Urine Negative (Negative); Protein Urine Neg (Negative); Urine Appearance Hazy (CLEAR); Urine Color Yellow (Yellow); pH Urine 6.5 (5-7)
[2021-10-02 14:46] LABS: Add Urine Microscopic? YES; Bilirubin Urine Neg (Negative); Blood Urine Neg (Negative); Leukocyte Esterase Urine Negative (Negative); Nitrate Urine Negative (Negative); Urobilinogen Urine Neg (Negative)
[2021-10-02 14:59] LABS: Add Urine Culture? Yes; Bacteria Urine 2+ /hpf; RBC Urine 0-4 /hpf (0-2)
[2021-10-02 15:03] LABS: Alanine Aminotransferase 7 U/L (0-33); Albumin Level 3.4 g/dL (3.5-5.2); Alkaline Phosphatase 94 IU/L (35-105); Anion Gap 13.5 (5-19); Aspartate Amino Transferase 10 U/L (0-32); Blood Urea Nitrogen 3 mg/dL (6-20); Calcium 8.4 mg/dL (8.5-10.5); Carbon Dioxide 25 mmol/L (22-29); Chloride 101 mmol/L (98-107); Globulin 2.6 g/dL (1.3-4.6); Glomerular Filtration Rate 271.1 mL/min (90-130); Glucose 85 mg/dL (65-115); Osmolality Calculated 278 mOsm/kg (285-295); Potassium 3.5 mmol/L (3.5-5.1); Sodium 136 mmol/L (136-145); Total Bilirubin 0.2 mg/dL (0.15-1.2); Uric Acid 4.8 mg/dL (2.4-5.7)
[2021-10-02 15:27] LABS: Urine Creatinine 46 mg/dL (28-217); Urine Protein Random 5 mg/dL
[2021-10-02 15:30] LABS: UPRO/UCREAT Ratio 0.11 mg/mg CR
== END 2021-10-02 15:44 | disposition home or self-care (01) ==
LOC: OPOB 12:37 → OBGYN 12:39
PROVIDERS: Visit Provider Family Medicine
DX: O26.899 Other specified pregnancy related conditions, unspecified trimester (principal); Z3A.00 Weeks of gestation of pregnancy not specified
CPT/HCPCS: 59025; 80053; 81001; 82570; 84156; 84550; 85025; 87086; 99211

== ENCOUNTER 2021-10-05 16:00 | Outpatient (CLI) | payer MEDICAID, SELFPAY ==
[2021-10-05 16:00] VITALS: BMI 42.4
[2021-10-05 16:05] VITALS: TEMP 35.8
[2021-10-05 16:06] VITALS: BP 145/73; RESP 18
[2021-10-05 16:25] VITALS: BP 117/71; PULSE 85
[2021-10-05 16:39] VITALS: BP 117/71; PULSE 85; RESP 18; TEMP 36.1
== END 2021-10-05 16:40 | disposition home or self-care (01) ==
LOC: OPOB 16:03 → OBGYN 16:05
PROVIDERS: Visit Provider Family Medicine
DX: Z87.59 Personal history of other complications of pregnancy, childbirth and the puerperium (principal)
CPT/HCPCS: 59025; 99211

== ENCOUNTER 2021-10-09 12:55 | Outpatient (CLI) | payer MEDICAID, SELFPAY ==
[2021-10-09 12:55] VITALS: BMI 42.5
[2021-10-09 13:16] VITALS: BP 139/90; PULSE 93
[2021-10-09 13:31] VITALS: BP 128/77; PULSE 85
[2021-10-09 13:47] VITALS: BP 126/76; PULSE 81
== END 2021-10-09 13:54 | disposition home or self-care (01) ==
LOC: OPOB 12:59 → OBGYN 13:00
PROVIDERS: Visit Provider Family Medicine
DX: O16.9 Unspecified maternal hypertension, unspecified trimester (principal); Z3A.00 Weeks of gestation of pregnancy not specified
CPT/HCPCS: 59025

== ENCOUNTER 2021-10-12 13:40 | Outpatient (CLI) | payer MEDICAID, SELFPAY ==
[2021-10-12 13:40] VITALS: BMI 42.9
[2021-10-12 14:03] VITALS: BP 143/79; PULSE 96
[2021-10-12 14:18] VITALS: BP 147/79; PULSE 97
== END 2021-10-12 14:27 | disposition home or self-care (01) ==
LOC: OPOB 13:41 → OBGYN 13:48
PROVIDERS: Visit Provider Family Medicine
DX: O24.419 Gestational diabetes mellitus in pregnancy, unspecified control (principal); Z3A.00 Weeks of gestation of pregnancy not specified
CPT/HCPCS: 59025; 99211

== ENCOUNTER 2021-10-23 10:45 | Outpatient (CLI) | payer MEDICAID, SELFPAY ==
[2021-10-23] VITALS (9 sets, daily range): BP systolic 110–123; BP diastolic 71–77; PULSE 78–95; RESP 15; BMI 42.9
[2021-10-23 11:36] LABS: Basophils % 0.2 %; Eosinophils # 0.1 10^3/uL (0.0-0.8); Eosinophils % 0.8 %; Hematocrit 32.2 % (37.0-47.0); Hemoglobin 10.2 g/dL (11.5-15.3); Lymphocytes # 2.1 10^3/uL (0.8-4.8); Lymphocytes % 21.8 %; Mean Corpuscular HGB Conc 31.7 g/dL (30.0-36.0); Mean Corpuscular Hemoglobin 25.3 pg (28.0-34.0); Mean Corpuscular Volume 79.9 fl (81-99); Mean Platelet Volume 10.3 fL (7.4-10.4); Monocytes # 0.5 10^3/uL (0.2-0.9); Monocytes % 5.3 %; Neutrophils # 6.85 10^3/uL (1.8-7.7); Nucleated Red Blood Cells % 0 %; Platelet Count 219 10^3/cmm (130-400); Red Blood Count 4.03 10^6/uL (4.1-5.3); Red Cell Distribution Width 15.5 % (12.1-15.1); White Blood Count 9.7 10^3/uL (4.0-10.0)
[2021-10-23 11:53] LABS: Alanine Aminotransferase 8 U/L (0-33); Albumin Level 3.2 g/dL (3.5-5.2); Alkaline Phosphatase 103 IU/L (35-105); Anion Gap 17.4 (5-19); Aspartate Amino Transferase 11 U/L (0-32); Blood Urea Nitrogen 4 mg/dL (6-20); Calcium 9.3 mg/dL (8.5-10.5); Carbon Dioxide 21 mmol/L (22-29); Chloride 98 mmol/L (98-107); Glomerular Filtration Rate 271.1 mL/min (90-130); Glucose 94 mg/dL (65-115); Osmolality Calculated 273 mOsm/kg (285-295); Potassium 3.4 mmol/L (3.5-5.1); Sodium 133 mmol/L (136-145); Total Bilirubin 0.2 mg/dL (0.15-1.2); Total Protein 6.2 g/dL (6.6-8.7); Uric Acid 4.5 mg/dL (2.4-5.7)
[2021-10-23 12:25] LABS: Add Urine Microscopic? YES; Bilirubin Urine Neg (Negative); Blood Urine Neg (Negative); Glucose Urine UA Norm (Normal); Ketones Urine Negative (Negative); Leukocyte Esterase Urine Negative (Negative); Nitrate Urine Negative (Negative); Protein Urine Neg (Negative); Urine Appearance Hazy (CLEAR); Urine Color Yellow (Yellow); Urobilinogen Urine Neg (Negative); pH Urine 6 (5-7)
[2021-10-23 12:35] LABS: Bacteria Urine 2+ /hpf; WBC Urine RARE /hpf (0-5)
[2021-10-23 12:36] LABS: Add Urine Culture? No
[2021-10-23 13:03] LABS: Urine Creatinine 95 mg/dL (28-217); Urine Protein Random 17 mg/dL
[2021-10-23 13:04] LABS: UPRO/UCREAT Ratio 0.18 mg/mg CR
== END 2021-10-23 13:15 | disposition home or self-care (01) ==
LOC: OPOB 10:53 → OBGYN 10:55
PROVIDERS: Visit Provider Family Medicine
DX: O16.9 Unspecified maternal hypertension, unspecified trimester (principal); Z3A.00 Weeks of gestation of pregnancy not specified
CPT/HCPCS: 59025; 80053; 81001; 82570; 84156; 84550; 85025; 99211

== ENCOUNTER 2021-10-26 13:10 | Outpatient (CLI) | payer MEDICAID, SELFPAY ==
[2021-10-26 13:10] VITALS: BMI 42.9
[2021-10-26 13:24] VITALS: BP 160/99; PULSE 93
[2021-10-26 13:40] VITALS: BP 143/86; PULSE 96
[2021-10-26 13:55] VITALS: BP 138/86; PULSE 94
[2021-10-26 14:00] VITALS: RESP 18
== END 2021-10-26 14:00 | disposition home or self-care (01) ==
LOC: OPOB 13:16 → OBGYN 13:18
PROVIDERS: Visit Provider Family Medicine
DX: O16.9 Unspecified maternal hypertension, unspecified trimester (principal); Z3A.00 Weeks of gestation of pregnancy not specified
CPT/HCPCS: 59025

== ENCOUNTER 2021-10-27 18:15 | Outpatient (CLI) | payer MEDICAID, SELFPAY ==
[2021-10-27] VITALS (13 sets, daily range): BP systolic 119–161; BP diastolic 60–91; PULSE 83–113; RESP 17; TEMP 35.9; BMI 41.6
[2021-10-27] MEDS: TRAMadol 50 mg Tablet PO (19:10)
[2021-10-27 19:16] LABS: Basophils % 0.2 %; Eosinophils % 0.4 %; Hematocrit 31.2 % (37.0-47.0); Lymphocytes # 1.9 10^3/uL (0.8-4.8); Lymphocytes % 18.5 %; Mean Corpuscular HGB Conc 32.1 g/dL (30.0-36.0); Mean Corpuscular Hemoglobin 25.5 pg (28.0-34.0); Mean Corpuscular Volume 79.6 fl (81-99); Mean Platelet Volume 10.7 fL (7.4-10.4); Monocytes # 0.6 10^3/uL (0.2-0.9); Monocytes % 5.8 %; Neutrophils # 7.42 10^3/uL (1.8-7.7); Neutrophils % 74.4 %; Nucleated Red Blood Cells % 0 %; Platelet Count 229 10^3/cmm (130-400); Red Blood Count 3.92 10^6/uL (4.1-5.3); Red Cell Distribution Width 15.6 % (12.1-15.1)
[2021-10-27 19:37] LABS: Albumin Level 3.5 g/dL (3.5-5.2); Alkaline Phosphatase 100 IU/L (35-105); Blood Urea Nitrogen 4 mg/dL (6-20); Calcium 9.5 mg/dL (8.5-10.5); Carbon Dioxide 22 mmol/L (22-29); Chloride 102 mmol/L (98-107); Glomerular Filtration Rate 271.1 mL/min (90-130); Glucose 84 mg/dL (65-115); Osmolality Calculated 278 mOsm/kg (285-295); Sodium 136 mmol/L (136-145); Total Bilirubin 0.2 mg/dL (0.15-1.2); Total Protein 6.5 g/dL (6.6-8.7); Uric Acid 4.7 mg/dL (2.4-5.7)
[2021-10-27 19:42] LABS: Alanine Aminotransferase 10 U/L (0-33); Anion Gap 16.2 (5-19); Aspartate Amino Transferase 30 U/L (0-32); Potassium 4.2 mmol/L (3.5-5.1)
[2021-10-27 19:45] LABS: Add Urine Microscopic? YES; Bilirubin Urine Neg (Negative); Blood Urine Neg (Negative); Glucose Urine UA Norm (Normal); Ketones Urine Negative (Negative); Leukocyte Esterase Urine Negative (Negative); Nitrate Urine Negative (Negative); Protein Urine Neg (Negative); Specific Gravity, Urine 1.015 (1.005-1.030); Urine Appearance Hazy (CLEAR); Urine Color Yellow (Yellow); Urobilinogen Urine Norm (Negative); pH Urine 7 (5-7)
[2021-10-27 19:46] LABS: Add Urine Culture? No; Bacteria Urine 4+ /hpf; RBC Urine 0-4 /hpf (0-2); Squamous Epithelial Cell Urine >100 /hpf (0-5); WBC Urine 0-4 /hpf (0-5)
[2021-10-27 19:55] LABS: Urine Creatinine 80 mg/dL (28-217); Urine Protein Random 12 mg/dL
[2021-10-27 20:03] LABS: UPRO/UCREAT Ratio 0.15 mg/mg CR
[2021-10-27] MEDS: oxyCODONE-APAP 10-325 mg Tablet 1 TAB PO (20:46)
== END 2021-10-27 20:59 | disposition home or self-care (01) ==
LOC: OPOB 18:16 → OBGYN 18:17
PROVIDERS: Visit Provider Family Medicine
DX: O26.899 Other specified pregnancy related conditions, unspecified trimester (principal); Z3A.00 Weeks of gestation of pregnancy not specified; R51.9 Headache, unspecified
CPT/HCPCS: 36415; 59025; 80053; 81001; 82570; 84156; 84550; 85025; 99211

== ENCOUNTER 2021-10-30 13:15 | Outpatient (CLI) | payer MEDICAID, SELFPAY ==
[2021-10-30 13:34] VITALS: BP 139/90; PULSE 97
[2021-10-30 13:35] VITALS: TEMP 36
[2021-10-30 13:51] VITALS: BP 126/81; PULSE 90
[2021-10-30 14:09] VITALS: RESP 17; BMI 41.6
[2021-10-30 14:16] VITALS: RESP 17
== END 2021-10-30 14:07 | disposition home or self-care (01) ==
LOC: OPOB 13:21 → OBGYN 13:26
PROVIDERS: Visit Provider Family Medicine
DX: O16.9 Unspecified maternal hypertension, unspecified trimester (principal); Z3A.00 Weeks of gestation of pregnancy not specified
CPT/HCPCS: 59025

== ENCOUNTER 2021-11-02 14:49 | Inpatient (IN) | payer MEDICAID, SELFPAY ==
[2021-11-02] VITALS (29 sets, daily range): BP systolic 107–157; BP diastolic 72–103; PULSE 81–117; RESP 15–18; TEMP 36.9–37.2; O2SAT 95–100; BMI 42.9
--- NOTE | 2021-11-02 13:53 | US_ITS ---
WS: [id number] ULTRASOUND OB FOCUSED HISTORY: position COMPARISON: 08/13/2021 Single intrauterine gestation is present. Fetus is in breech position. Cervix is identified in close to 4.8 cm. Adequate amount of amniotic fluid. An occluded index 16.2 cm. The largest vertical pocket is 7.9 cm. heart rate at 131 BPM. Placenta is to the LEFT and extends anterior to posterior. Placenta grade 2 US/US OB limited [id number] IMPRESSION: 1. Breech position. 2. Normal amniotic fluid index.
[2021-11-02 15:13] LABS: Basophils % 0.2 %; Eosinophils # 0.1 10^3/uL (0.0-0.8); Eosinophils % 1.3 %; Hematocrit 31.3 % (37.0-47.0); Lymphocytes # 1.8 10^3/uL (0.8-4.8); Lymphocytes % 18.7 %; Mean Corpuscular HGB Conc 31.9 g/dL (30.0-36.0); Mean Corpuscular Hemoglobin 25.4 pg (28.0-34.0); Mean Corpuscular Volume 79.4 fl (81-99); Mean Platelet Volume 10.9 fL (7.4-10.4); Monocytes # 0.6 10^3/uL (0.2-0.9); Monocytes % 6.1 %; Neutrophils # 6.91 10^3/uL (1.8-7.7); Nucleated Red Blood Cells % 0 %; Platelet Count 227 10^3/cmm (130-400); Red Blood Count 3.94 10^6/uL (4.1-5.3); Red Cell Distribution Width 15.7 % (12.1-15.1); White Blood Count 9.5 10^3/uL (4.0-10.0)
--- NOTE | 2021-11-02 15:18 | ANES.PREANE2 ---
Pre-Anesthetic Assessment Height/Weight: Height 1.68 m Pulse Resp BP 81 18 157/95 11/02/21 14:27 11/02/21 14:33 11/02/21 14:27 C/S Familial anesthetic complications: None Was Beta Jojo taken within 24 hours: N/A Was Clonidine taken within 24 hours: N/A Social No alcohol and No tobacco Exam alert, oriented x 3, clear to auscultation bilaterally and regular rate & rhythm Airway Submandibular: within normal limits Cervical ROM: within normal limits Mallampati: Class II Dentition: full Metabolic Morbid Obesity Anesthetic Plan ASA status: 2 Anesthesia: Regional (specify below) (SAB) Other: Transverse or Breech presentatioin Risk of > 500 ml blood loss (7ml/kg in children): Yes, adequate IV access and fluids planned Medications/Allergies Home Medications Medication Instructions Recorded Confirmed Last Taken Type fluoxetine 40 mg capsule 40 mg PO DAILY 03/14/20 10/27/21 1 Day Ago History ~03/13/20 nitrofurantoin macrocrystal 100 mg 100 mg PO BID 7 Days #14 cap 08/29/20 10/27/21 Unknown Rx capsule ondansetron 4 mg disintegrating 4 mg PO Q6H PRN #12 tab 08/29/20 10/27/21 Unknown Rx tablet phenazopyridine 100 mg tablet 100 mg PO TID #6 tab 08/29/20 10/27/21 Unknown Rx (Pyridium) Allergies Allergy/AdvReac Type Severity Reaction Status Date / Time amoxicillin Allergy ALGY-Hives Verified 03/21/21 18:57 [facility], [facility] Anesthesia Medical History (Updated 06/28/21 @ 00:01 by ) Psychiatric care Social History Smoking and tobacco status: never smoked Female Reproductive History Date of last menstrual period: 02/15/21 Data Anesthesia : 11/02/21 15:00 Short CBC 11/02/21 Range/Units 15:00 WBC 9.5 (4.0-10.0) 10^3/uL Hgb 10.0 L (11.5-15.3) g/dL Hct 31.3 L (37.0-47.0) % MCV 79.4 L (81-99) fl Plt Count 227 (130-400) 10^3/cmm Neut % (Auto) 73.0 % Neut # (Auto) 6.91 (1.8-7.7) 10^3/uL Cardiac Studies: No Data to Display
[2021-11-02] MEDS: lactated ringers 1,000 ML 999 ML IV (18:56)
[2021-11-02] MEDS: citric acid-sodium citrate 30 mL UDC PO (19:40)
[2021-11-02] MEDS: metoclopramide 5 mg/mL SDV 2 mL 10 MG IVP (19:41)
[2021-11-02] MEDS: famotidine 20 mg/2 mL INJ IVP (19:44)
--- NOTE | 2021-11-02 21:10 | PM.OP ---
Operative Report Date of procedure: November 02, 2021 Pre-op diagnosis: 1. IUP at 38 weeks 1 day gestation 2. -induced hypertension 3. Intractable headache 4. Transverse lie Procedure done: Primary low transverse Surgeon: Camila Sen MD Estimated blood loss (mL): 700 IV fluids (mL): 1,000 Urine output (mL): 100 Complications: None Findings: Jagdeep breech male weight 7 pounds 0 ounces. APGARS 4 and 7 Procedure: After informed a Pfannenstiel skin incision was made and carried through to the underlying layer of fascia sharply. The fascial incision was then extended laterally using the Mayos. The peritoneum was entered bluntly using a hemostat and the incision site was manually stretched. The bladder blade was then inserted. The vesicouterine peritoneum was identified and entered sharply using the Metzenbaums. The bladder flap was then created digitally. The bladder blade was reinserted. Uterine incision was made in a transverse fashion in the lower uterine segment. The lower uterine segment was very floppy and bleeding from the incision was very brisk. The amniotic membrane was ruptured using an Allis clamp. The infant was delivered in jagdeep breech position using standard breech maneuvers. The had a copious amount of meconium upon delivery. Bulb suction of the mouth and nares was performed at delivery. He was flexed with good tone and attempting silent cries. The cord was clamped and cut and the was handed to the waiting pediatric nurse. Cord blood was obtained. The placenta was delivered grossly intact and normal to inspection using fundal pressure. The uterus was then exteriorized from the abdomen and a dry sponge was used to clear the uterus of clots and debris. The uterine incision was repaired using 0 chromic in a running locked fashion. A second layer of the same suture was used in an imbricating manner. There was a small amount of bleeding at the midline and a [id number] suture of 0 chromic was performed with good hemostasis. The uterus was then returned to the abdomen. Irrigation was then used to clear the gutters of clots and debris and the uterine incision was reinspected for hemostasis. The peritoneum was then reapproximated using 4-0 Vicryl in a running fashion. The subfascial tissue was inspected for any small bleeders and the fascia was then reapproximated using 0 Vicryl in a running fashion. The subcutaneous tissue was irrigated and any small bleeders were coagulated using the Bovie. The subcutaneous tissue was then reapproximated using 4-0 Vicryl in a running fashion. The skin was then reapproximated using 4-0 Vicryl on a Wilfredo needle. Steri-Strips and a pressure bandage were applied and patient went to recovery in good condition Sponge instrument and needle counts were correct.
--- NOTE | 2021-11-02 21:17 | P.HPUD_ITS ---
Labor & Delivery H&P Update Date of Procedure: November 02, 2021 Date H&P Performed: 11/02/21 Admission Diagnosis: 1. IUP at 38 weeks 1 day gestation 2. -induced hypertension 3. Intractable headache 4. Transverse lie Other information: This is a 25-year G5, P1 at 38 weeks 1 day gestation who presented for routine NST secondary to -induced hypertension. Her blood pressures were mildly elevated (157/103), not severe, however she complained of intractable headache. Since she was already term decision was made to go ahead and proceed with primary section. Infant was noted to be in breech position and was reverified via ultrasound to be at least in transverse lie today. Mother had routine care at [facility]. She is blood type a positive, antibody negative, hepatitis B surface antigen nonreactive, hepatitis C antibody nonreactive, HIV nonreactive, RPR nonreactive, rubella immune, she passed her GCT at 109. Her was complicated by -induced hypertension, possibly undiagnosed chronic hypertension. At 21 weeks 6 days gestation her blood pressure was 142/88. Her highest were after 30 weeks at 140/100 and 152/92. Her blood pressures were not severe so she was not started on antihypertensives. She had monthly growth ultrasounds and beginning at 32 weeks gestation began twice weekly NSTs. She had multiple preeclampsia profiles, the most recent being 4 days ago with normal platelets, AST, ALT, and urine protein creatinine ratio. It was 4 days ago when she presented to triage complaining of intractable headache. Her blood pressures were only mildly elevated as per her usual but her headache did not respond to Tylenol or tramadol. She was given a dose of Vicodin x1 and states that her headache was improved for about 1-2 days, but then recurred and was present upon admission. She also c/o paresthesias of her left face today. Since she is 38 weeks decision was made for delivery.
[2021-11-02] MEDS: dextrose 5%-lactated ringers 1,000 ML 125 ML IV (23:25)
[2021-11-03] VITALS (9 sets, daily range): BP systolic 107–144; BP diastolic 71–89; PULSE 90–112; RESP 16–18; TEMP 36.6–37; O2SAT 96–99
[2021-11-03] MEDS: ketorolac 30 mg/mL INJ IVP ×3 (05:08→18:09)
--- NOTE | 2021-11-03 08:51 | ANE.PACU2 ---
Inpatient post-anesthesia follow up: Airway intact: Yes Vital signs: Temperature 98.5 F Pulse Rate 102 Respiratory Rate 16 Blood Pressure 131/84 Pulse Oximetry 99 Oxygen Delivery Me thod Room Air Oxygen Flow Rate Fraction of Inspir ed Oxygen Hydration adequate: Yes Nausea and vomiting: No Pain level: 2 Mental status: Baseline
[2021-11-03] MEDS: docusate sodium 100 mg Capsule PO ×2 (09:11→18:10)
[2021-11-03] MEDS: dextrose 5%-lactated ringers 1,000 ML 125 ML IV (09:11)
[2021-11-03] MEDS: prenatal vitamin Capsule 1 CAP PO (09:11)
[2021-11-03 10:01] LABS: Hematocrit 29.2 % (37.0-47.0); Hemoglobin 9.1 g/dL (11.5-15.3); Mean Corpuscular HGB Conc 31.2 g/dL (30.0-36.0); Mean Corpuscular Hemoglobin 25.1 pg (28.0-34.0); Mean Corpuscular Volume 80.7 fl (81-99); Mean Platelet Volume 10.8 fL (7.4-10.4); Platelet Count 191 10^3/cmm (130-400); Red Blood Count 3.62 10^6/uL (4.1-5.3); Red Cell Distribution Width 15.9 % (12.1-15.1); White Blood Count 9.9 10^3/uL (4.0-10.0)
[2021-11-03] MEDS: HYDROcodone-acetaminophen 5-325 mg Tablet PO ×3 (15:49→23:33)
--- NOTE | 2021-11-03 16:59 | P.PN_ITS ---
Subjective Subjective: She is postop day 1 primary section and is doing well. She is tolerating a regular diet. Her pain is controlled and her bleeding has been minimal. Vitals/I&O/Wt Last Vital Signs Temp 97.8 F 11/03/21 16:38 Pulse 95 11/03/21 16:38 Resp 18 11/03/21 16:38 BP 123/85 11/03/21 16:38 Pulse Ox 98 11/03/21 16:38 11/03/21 11/03/21 11/03/21 06:59 14:59 22:59 Intake Total 1000 / 1000 1414.583 / 1414.583 Output Total 1230 / 1330 925 / 925 150 / 1075 Balance -230 / -330 489.583 / 489.583 -150 / 339.583 Weight last 48 hrs Weight 117.027 kg Physical Exam Narrative: Alert and oriented resting in bed, abdomen soft nontender, incision dressing still in place clean dry and intact, lower extremity edema but no calf tenderness. Urinary Catheter Management: Vilchis: Cath Placed During This Visit: yes, but has since been removed by the nurse Reason for Continuing Indwelling Catheter: Decision to DC Catheter Urinary Catheter Date of Insertion: 11/03/21 Urinary Catheter Time of Insertion: 20:00 Date Urinary Catheter Removed: 11/03/21 Time Urinary Catheter Discontinued: 12:30 Data : 11/03/21 09:20 A&P Assessment and plan (1) Status post primary low transverse section: Postop day #1 doing well. Continue routine postoperative care. Encourage removing external bandage tonight when she showers. Status: Acute (2) induced hypertension, delivered, current hospitalization: blood pressures have been in the 120s. Her headache is resolved. Status: Acute Attestations Medical Necessity Statement*: Routine postoperative and care Coding Level of Care Code Acute Athletic Events Scorer for Chg Fwd Diagnoses Status post primary low transverse section Z98.891 induced hypertension, delivered, current hospitalization O13.4
[2021-11-04] MEDS: HYDROcodone-acetaminophen 5-325 mg Tablet PO ×4 (03:29→19:37)
[2021-11-04 04:41] VITALS: BP 129/84; PULSE 89; TEMP 36.6; O2SAT 97
[2021-11-04] MEDS: docusate sodium 100 mg Capsule PO ×2 (07:54→17:36)
[2021-11-04] MEDS: prenatal vitamin Capsule 1 CAP PO (07:55)
[2021-11-04] MEDS: ibuprofen 800 mg tablet PO ×3 (09:01→20:35)
[2021-11-04 10:50] VITALS: BP 132/88; PULSE 88; RESP 20; TEMP 36.8; O2SAT 97
--- NOTE | 2021-11-04 14:04 | P.PN_ITS ---
Subjective Subjective: Doing well. Tolerating a regular diet, ambulating, good pain control on oral medications. Vitals/I&O/Wt Last Vital Signs Temp 98.3 F 11/04/21 10:50 Pulse 88 11/04/21 10:50 Resp 20 H 11/04/21 10:50 BP 132/88 11/04/21 10:50 Pulse Ox 97 11/04/21 10:50 11/03/21 11/04/21 11/04/21 22:59 06:59 14:59 Output Total 750 / 1675 Balance -750 / -260.417 Physical Exam Narrative: Alert and oriented, sitting up in bed, heart regular rate and rhythm, lungs clear to auscultation bilaterally, abdomen soft with minimal tenderness, Steri-Strips are clean with minimal moisture. Extremities have nonpitting edema with no calf tenderness Urinary Catheter Management: Vilchis: Cath Placed During This Visit: yes, but has since been removed by the nurse Reason for Continuing Indwelling Catheter: Decision to DC Catheter Urinary Catheter Date of Insertion: 11/03/21 Urinary Catheter Time of Insertion: 20:00 Date Urinary Catheter Removed: 11/03/21 Time Urinary Catheter Discontinued: 12:30 Data : 11/03/21 09:20 A&P Assessment and plan (1) Status post primary low transverse section: Postop day number 2 doing well. will require another midnight stay. Status: Acute (2) induced hypertension, delivered, current hospitalization: Her highest blood pressure was 144/83, she has not required antihypertensives. Status: Acute Attestations Medical Necessity Statement*: Routine postoperative care Coding Level of Care Code Acute Child Care Counselor for Chg Fwd Diagnoses Status post primary low transverse section Z98.891 induced hypertension, delivered, current hospitalization O13.4
[2021-11-04 17:38] VITALS: BP 118/87; PULSE 90; RESP 16; O2SAT 97
[2021-11-04 20:53] VITALS: BP 148/89; PULSE 90; RESP 16; TEMP 36.6; O2SAT 97
[2021-11-05] MEDS: HYDROcodone-acetaminophen 5-325 mg Tablet PO ×3 (01:06→14:19)
[2021-11-05 04:18] VITALS: BP 136/89; PULSE 81; TEMP 36.6; O2SAT 98
[2021-11-05] MEDS: ibuprofen 800 mg tablet PO ×2 (09:01→14:19)
[2021-11-05] MEDS: prenatal vitamin Capsule 1 CAP PO (09:01)
[2021-11-05] MEDS: docusate sodium 100 mg Capsule PO (09:01)
[2021-11-05 10:00] VITALS: BP 132/82; PULSE 79; RESP 17; TEMP 36.6; O2SAT 97
--- NOTE | 2021-11-05 12:12 | P.DS_ITS ---
Discharge Providers Date of Admission: 11/02/21 14:49 Date of Discharge: November 05, 2021 Attending Provider at Admission: Camila Sen MD Attending Provider at Discharge: Camila Sen MD Diagnoses at Discharge Discharge Diagnosis (1) Status post primary low transverse section: Status: Acute (2) induced hypertension, delivered, current hospitalization: Status: Acute Reason for Visit Reason for Visit: NST Hospital Course Hospital Course This is a 25-year-old G5 now P2 who underwent a primary section secondary to breech presentation and -induced hypertension with intractable headache. She did well postoperatively. She was ambulating, tolerating a regular diet, had good pain control on oral medications and was comfortable with discharge home. Physical Exam Narrative: Alert and oriented, sitting up in bed eating lunch, lungs clear to auscultation bilaterally, heart regular rate and rhythm, abdomen is soft and nontender, incision is clean dry and intact with dry Steri-Strips in place, extremities have nonpitting edema but no calf tenderness Urinary Catheter Management: Vilchis: Cath Placed During This Visit: yes, but has since been removed by the nurse Reason for Continuing Indwelling Catheter: Decision to DC Catheter Urinary Catheter Date of Insertion: 11/03/21 Urinary Catheter Time of Insertion: 20:00 Date Urinary Catheter Removed: 11/03/21 Time Urinary Catheter Discontinued: 12:30 Discharge Data Studies Completed and Pending Completed Studies During Hospitalization Category Date Time Status US OB limited [id number] Routine Ultrasound 11/02/21 13:53 Completed Radiology Impressions Obstetrics Ultrasound 11/02/21 13:53 IMPRESSION: 1. Breech position. 2. Normal amniotic fluid index. Laboratory Results WBC 9.9 10^3/uL (4.0-10.0) 11/03/21 09:20 RBC 3.62 10^6/uL (4.1-5.3) L 11/03/21 09:20 Hgb 9.1 g/dL (11.5-15.3) L 11/03/21 09:20 Hct 29.2 % (37.0-47.0) L 11/03/21 09:20 MCV 80.7 fl (81-99) L 11/03/21 09:20 MCH 25.1 pg (28.0-34.0) L 11/03/21 09:20 MCHC 31.2 g/dL (30.0-36.0) 11/03/21 09:20 RDW 15.9 % (12.1-15.1) H 11/03/21 09:20 Plt Count 191 10^3/cmm (130-400) 11/03/21 09:20 MPV 10.8 fL (7.4-10.4) H 11/03/21 09:20 Neut % (Auto) 73.0 % 11/02/21 15:00 Lymph % (Auto) 18.7 % 11/02/21 15:00 [place] % (Auto) 6.1 % 11/02/21 15:00 Eos % (Auto) 1.3 % 11/02/21 15:00 Baso % (Auto) 0.2 % 11/02/21 15:00 Neut # (Auto) 6.91 10^3/uL (1.8-7.7) 11/02/21 15:00 Lymph # (Auto) 1.8 10^3/uL (0.8-4.8) 11/02/21 15:00 [place] # (Auto) 0.6 10^3/uL (0.2-0.9) 11/02/21 15:00 Eos # (Auto) 0.1 10^3/uL (0.0-0.8) 11/02/21 15:00 Baso # (Auto) 0.0 10^3/uL (0.0-0.1) 11/02/21 15:00 Nucleated RBC % (auto) 0 % 11/02/21 15:00 Nucleated RBCs # 0.0 /100WBC 11/02/21 15:00 Blood Type A Positive 11/02/21 15:00 Rho(D) Type Positive 11/02/21 15:00 Antibody Screen Negative 11/02/21 15:00 Vitals Last Vital Signs Temp 97.9 F 11/05/21 10:00 Pulse 79 11/05/21 10:00 Resp 17 11/05/21 10:00 BP 132/82 11/05/21 10:00 Pulse Ox 97 11/05/21 10:00 Discharge Plan Discharge Patient Disposition: Home Condition: Stable Prescriptions: New ibuprofen 800 mg Tablet 800 mg PO TID PRN (Reason: Abdominal Discomfort) Qty: 30 0RF hydrocodone-acetaminophen 5-325 mg Tablet 1 - 2 tab PO Q4H PRN (Reason: Moderate To Severe Pain) Qty: 15 0RF docusate sodium 100 mg Capsule 100 mg PO BID Qty: 60 0RF Continued fluoxetine 40 mg Capsule 40 mg PO DAILY 0RF Discontinued nitrofurantoin macrocrystal 100 mg capsule 100 mg PO BID 7 Days Qty: 14 0RF Rx Instructions: must administer with a meal/food ondansetron 4 mg tablet,disintegrating 4 mg PO Q6H PRN (Reason: nausea and vomiting) Qty: 12 0RF Rx Instructions: 340b please phenazopyridine [Pyridium] 100 mg tablet 100 mg PO TID Qty: 6 0RF Discharge Orders: Discharge Order (Routine); Ordered 11/05/21 Ordered By: Camila Sen Referrals: Camila Sen MD [Physician] - 1-3 days Patient Instructions: Preeclampsia and Eclampsia After Delivery (GEN), Opioid Safety Discharge Attestations Time Spent in Discharge Care*: less than 30 min Quality Metrics Clinical Quality Measures [ No reported AMI, CVA or VTE this stay] Coding Level of Care Code Acute Chg FW DC note Diagnoses Status post primary low transverse section Z98.891 induced hypertension, delivered, current hospitalization O13.4
[2021-11-05 15:30] VITALS: BP 136/84; PULSE 88; RESP 18; TEMP 36.7; O2SAT 98
== END 2021-11-05 15:10 | disposition home or self-care (01) | DRG 788 ==
LOC: OPOB 14:50 → OBGYN 14:50
PROVIDERS: Admitting Provider Family Medicine; Visit Provider Family Medicine
PROC: 10D00Z1 Extraction of Products of Conception, Low, Open Approach (ICD-10-PCS; CPT 59514; principal; 2021-11-02 20:00)
DX: O13.4 Gestational [pregnancy-induced] hypertension without significant proteinuria, complicating childbirth (principal); O32.2XX0 Maternal care for transverse and oblique lie, not applicable or unspecified; Z3A.38 38 weeks gestation of pregnancy; Z37.0 Single live birth; O75.89 Other specified complications of labor and delivery; R20.2 Paresthesia of skin
CPT/HCPCS: 36415; 51702; 59025; 59409; 76815; 85025; 85027; 86850; 86900; 96374; 96376; 99211; J0690; J1885; J2274; J2765; J3490; J7030

== ENCOUNTER → 2022-02-09 10:56 | Outpatient (BNVA) | payer MEDICAID, SELFPAY | PROVIDERS: Visit Provider Family Medicine Adult Medicine | DX: J02.9 Acute pharyngitis, unspecified (principal) | CPT/HCPCS: 87880 ==

== ENCOUNTER → 2022-06-15 10:46 | Outpatient (BNVA) | payer MEDICAID, SELFPAY | PROVIDERS: PCP Family Medicine; Visit Provider Nurse Practitioner | DX: J02.9 Acute pharyngitis, unspecified (principal) | CPT/HCPCS: 87880 ==

== ENCOUNTER → 2022-07-20 15:19 | Outpatient (BNVA) | payer MEDICAID, SELFPAY | PROVIDERS: PCP Family Medicine; Visit Provider Registered Nurse Neonatal Intensive Care | DX: J02.9 Acute pharyngitis, unspecified (principal); J06.9 Acute upper respiratory infection, unspecified | CPT/HCPCS: 87070; 87880 ==

== ENCOUNTER → 2022-09-24 11:02 | Outpatient (BNVA) | payer MEDICAID, SELFPAY | PROVIDERS: PCP Family Medicine; Visit Provider Nurse Practitioner Family | DX: J02.9 Acute pharyngitis, unspecified (principal) | CPT/HCPCS: 87880 ==

== ENCOUNTER → 2023-08-15 11:01 | Outpatient (BNVA) | payer MEDICAID, SELFPAY | PROVIDERS: PCP Family Medicine; Visit Provider Registered Nurse Neonatal Intensive Care | DX: J02.9 Acute pharyngitis, unspecified (principal) | CPT/HCPCS: 87880 ==

== ENCOUNTER 2023-08-29 15:09 | Outpatient (CLI) | payer MEDICAID, SELFPAY ==
--- NOTE | 2023-08-29 | US_ITS ---
WS: [id number] ULTRASOUND SOFT TISSUES RIGHT supraclavicular. HISTORY: LYMPHADENOPATHY COMPARISON: None available. TECHNIQUE: 2-D and color Doppler imaging is submitted. Ultrasound is directed to the RIGHT supraclavicular region in the area of concern. No mass is identif ied. No enlarged lymph nodes. No increased vascularity. IMPRESSION: Negative ultrasound RIGHT supraclavicular region. No lymphadenopathy identified.
== END 2023-08-29 15:10 | disposition home or self-care (01) ==
LOC: RAD 15:10
PROVIDERS: PCP Family Medicine; Visit Provider Family Medicine
DX: R59.1 Generalized enlarged lymph nodes (principal)
CPT/HCPCS: 76536

== ENCOUNTER 2023-12-09 09:42 | Outpatient (CLI) | payer MEDICAID, SELFPAY ==
--- NOTE | 2023-12-09 09:46 | US_ITS ---
WS: [id number] ULTRASOUND RIGHT BREAST HISTORY: R BREAST PAIN, 28-year-old. COMPARISON: None available. TECHNIQUE: 2-D and Doppler. Ultrasound is directed to the RIGHT breast at 11:00 in the area of pain. There is no abnormality iden tified. Normal appearance of the soft tissues. IMPRESSION: US/US breast RT limited* [id number] BI-RADS: 1-Negative FOLLOW-UP: See Report No ultrasound abnormality RIGHT breast in the area of pain. No additional imagi ng necessary.
== END 2023-12-09 09:43 | disposition home or self-care (01) ==
LOC: RAD 09:42
PROVIDERS: PCP Family Medicine; Visit Provider Family Medicine
DX: N64.4 Mastodynia (principal)
CPT/HCPCS: 76642

== ENCOUNTER 2024-02-27 07:21 | Emergency (ER) | payer MEDICAID, SELFPAY ==
[2024-02-27 07:31] VITALS: BP 132/71; PULSE 115; RESP 20; TEMP 37.1; O2SAT 100
--- NOTE | 2024-02-27 07:45 | W.ED.PREGNAN ---
HPI - General: Chief complaint: OB/Uterine Contractions Stated complaint: hasn't felt baby move in 24 hours, 17weeks preg Time Seen by Provider: 02/27/24 07:25 Source: patient Mode of arrival: ambulatory History of Present Illness: 28-year-old female G6, P2 present presents emergency room with complaints of decreased movement she is approximately 17 weeks gestation. She denies dysuria urgency or frequency no vaginal bleeding or cramping. She is just concerned because she felt like she did not feel adequate movements. Vaginal discharge: none Vaginal bleeding: none Associated symptoms: Deny abdominal pain, dysuria or vaginal discharge Review of Systems GI: Denies: abdominal pain : Denies: dysuria, urinary frequency, urinary urgency, vaginal bleeding or vaginal discharge PFS ED PFSH: Medical History (Updated 02/27/24 @ 07:43 by Facundo Campos DO) Allergic pharyngitis Social History Smoking and tobacco/nicotine status: never used tobacco/nicotine Physical Exam Narrative: EXAM NARRATIVE: Bedside ultrasound demonstrates initial heart rate in the 1 30-1 40 range accelerates to 160s. The 4-5 distinct movements noted of the limbs and head within 1 minute. Course Vital Signs: Vital signs: Vital Signs Temperature 98.8 F 02/27/24 07:31 Pulse Rate 115 H 02/27/24 07:31 Respiratory Rate 20 H 02/27/24 07:31 Blood Pressure 132/71 02/27/24 07:31 Pulse Oximetry 100 02/27/24 07:31 MDM - OB/Uterine Contractions Medical Decision Making Bedside ultrasound heart tones demonstrated see notes above also noted 4-5 distinct movements in less than 1 minute while observing on ultrasound. Patient observed at the bedside pointed out the heart activity and movements. Patient was reassured by the visualizing this we will discharge her home and have her follow-up with Dr. Sen at her next regularly scheduled visit. No radiology studies performed this visit Discharge Plan Discharge Patient Disposition: Home Clinical Impression: Second trimester Condition: Stable Prescriptions: No Action bupropion HCl [Wellbutrin SR] 100 mg tablet sustained-release 12 hr 100 mg PO DAILY Discharge Orders: Discharge ED (Routine); Ordered 02/27/24 Ordered By: Facundo Campos Referrals: Camila Sen MD [Primary Care Provider] - Patient Instructions: Opioid Safety, Pain Management Activity Restrictions/Additional Instructions: Thank you for choosing [facility] for your healthcare needs today. It is very important that you follow up as instructed or that you return to the Emergency Department should you have concerns or if your condition changes or worsens in any way. You are seen today for concerns about your unborn child. On ultrasound baby had normal heart tones and they were noted to increase while we are ultrasounding at the bedside. We are also able to visualize good movements. We noted several distinct movements within 1 minute. Recommend you follow-up with your regular OB visit as scheduled. Coding Level of Care Code ED Surgery Aide for Blake Beckwith
[2024-02-27 07:53] VITALS: BP 123/82; PULSE 96; O2SAT 100
== END 2024-02-27 07:54 | disposition home or self-care (01) ==
PROVIDERS: Emergency Provider Family Medicine; PCP Family Medicine
DX: Z03.79 Encounter for other suspected maternal and fetal conditions ruled out (principal)
CPT/HCPCS: 99281

== ENCOUNTER 2024-05-01 00:55 | Outpatient (CLI) | payer MEDICAID, SELFPAY ==
[2024-05-01 00:45] VITALS: BMI 42.3
[2024-05-01 01:02] VITALS: BP 134/82; PULSE 110; TEMP 35.7
[2024-05-01 01:18] VITALS: BP 122/67; PULSE 96
[2024-05-01 01:33] VITALS: BP 125/74; PULSE 106
[2024-05-01] MEDS: acetaminophen 500 mg Tablet 1000 MG PO (01:57)
== END 2024-05-01 02:00 | disposition home or self-care (01) ==
LOC: OPOB 00:56 → OBGYN 00:57
PROVIDERS: PCP Family Medicine; Visit Provider Family Medicine
DX: O26.899 Other specified pregnancy related conditions, unspecified trimester (principal); Z3A.00 Weeks of gestation of pregnancy not specified; R10.9 Unspecified abdominal pain
CPT/HCPCS: 99211

== ENCOUNTER 2024-06-05 12:27 | Outpatient (CLI) | payer MEDICAID, SELFPAY ==
[2024-06-05 12:27] VITALS: BMI 43.1
[2024-06-05 12:43] VITALS: BP 121/79; PULSE 111
[2024-06-05 13:11] VITALS: BP 134/79; PULSE 94
[2024-06-05 13:20] VITALS: BP 134/79; PULSE 94
== END 2024-06-05 13:20 | disposition home or self-care (01) ==
LOC: OPOB 12:37 → OBGYN 12:38
PROVIDERS: PCP Family Medicine; Visit Provider Family Medicine
DX: O26.899 Other specified pregnancy related conditions, unspecified trimester (principal); Z3A.00 Weeks of gestation of pregnancy not specified; W22.8XXA Striking against or struck by other objects, initial encounter; X58.XXXA Exposure to other specified factors, initial encounter
CPT/HCPCS: 59025; 99211

== ENCOUNTER 2024-06-11 14:45 | Outpatient (CLI) | payer MEDICAID, SELFPAY ==
[2024-06-11 14:45] VITALS: BMI 43.1
[2024-06-11 15:04] VITALS: BP 128/80; PULSE 98; RESP 16
[2024-06-11 15:18] VITALS: BP 117/77; PULSE 99; RESP 16
[2024-06-11 15:33] VITALS: BP 125/78; PULSE 91
== END 2024-06-11 15:45 | disposition home or self-care (01) ==
LOC: OPOB 14:54 → OBGYN 14:55
PROVIDERS: PCP Family Medicine; Visit Provider Family Medicine
DX: O16.9 Unspecified maternal hypertension, unspecified trimester (principal); Z3A.00 Weeks of gestation of pregnancy not specified
CPT/HCPCS: 59025

== ENCOUNTER 2024-07-13 18:35 | Outpatient (CLI) | payer MEDICAID, SELFPAY ==
[2024-07-13] VITALS (8 sets, daily range): BP systolic 116–142; BP diastolic 66–101; PULSE 92–126; RESP 16–18; BMI 44.1
[2024-07-13 19:20] LABS: Bilirubin Urine Negative (Negative); Blood Urine Negative (Negative); Glucose Urine UA Negative (Normal); Ketones Urine Negative (Negative); Leukocyte Esterase Urine Negative (Negative); Nitrate Urine Negative (Negative); Protein Urine Negative (Negative); Specific Gravity, Urine 1.005 (1.005-1.030); Urine Appearance Clear (CLEAR); Urine Color Yellow (Yellow); Urobilinogen Urine 0.2 mg/dL (Negative)
[2024-07-13 19:25] LABS: Add Urine Microscopic? YES; Bacteria Urine Trace /hpf; Hyaline Casts Urine 0-4 /lpf; RBC Urine 0-2 /hpf (0-2); Squamous Epithelial Cell Urine 0-5 /hpf (0-5); WBC Urine 0-5 /hpf (0-5)
[2024-07-13 19:25] LABS: Basophils % 0.2 %; Eosinophils # 0.1 10^3/uL (0.0-0.8); Eosinophils % 0.8 %; Hematocrit 36.7 % (36-47); Lymphocytes % 21.7 %; Mean Corpuscular HGB Conc 33.2 g/dL (30-55); Mean Corpuscular Hemoglobin 27.4 pg (27-33); Mean Corpuscular Volume 82.5 fl (85-98); Mean Platelet Volume 10.1 fL (7.4-10.4); Monocytes # 0.5 10^3/uL (0.2-0.9); Monocytes % 5.7 %; Neutrophils # 6.57 10^3/uL (1.8-7.7); Neutrophils % 70.6 %; Nucleated Red Blood Cells % 0 %; Platelet Count 201 10^3/cmm (157-399); Red Blood Count 4.45 10^6/uL (3.85-5.65); Red Cell Distribution Width 13.8 % (12.1-15.1)
[2024-07-13 19:36] LABS: UPRO/UCREAT Ratio 0.14 mg/mg CR; Urine Creatinine 29 mg/dL (28-217); Urine Protein Random 4 mg/dL
[2024-07-13 19:46] LABS: Alanine Aminotransferase 8 U/L (0-33); Albumin Level 3.6 g/dL (3.5-5.2); Alkaline Phosphatase 97 U/L (35-105); Anion Gap 14.7 (5-19); Aspartate Amino Transferase 11 U/L (0-32); Blood Urea Nitrogen 4 mg/dL (6-20); Calcium 9.1 mg/dL (8.5-10.5); Carbon Dioxide 25 mmol/L (22-29); Chloride 102 mmol/L (98-107); Creatinine Clr Calc Pharmacy 271.9838; Glomerular Filtration Rate 190.1 mL/min (90-130); Glucose 102 mg/dL (65-115); Osmolality Calculated 283 mOsm/kg (285-295); Potassium 3.7 mmol/L (3.5-5.1); Sodium 138 mmol/L (136-145); Total Bilirubin 0.2 mg/dL (0.15-1.2); Total Protein 6.6 g/dL (6.6-8.7); Uric Acid 4.7 mg/dL (2.4-5.7)
[2024-07-13] MEDS: oxyCODONE-APAP 5-325 mg Tablet 1 TAB PO (20:05)
== END 2024-07-13 20:18 | disposition home or self-care (01) ==
LOC: OPOB 18:35 → OBGYN 18:36
PROVIDERS: PCP Family Medicine; Visit Provider Family Medicine
DX: O26.899 Other specified pregnancy related conditions, unspecified trimester (principal); Z3A.00 Weeks of gestation of pregnancy not specified; R51.9 Headache, unspecified
CPT/HCPCS: 80053; 81001; 82570; 84156; 84550; 85025

== ENCOUNTER 2024-07-26 05:02 | Inpatient (IN) | payer MEDICAID, SELFPAY ==
[2024-07-26] VITALS (33 sets, daily range): BP systolic 87–141; BP diastolic 48–85; PULSE 67–111; RESP 14–16; TEMP 35.7–36.6; O2SAT 95–99; BMI 43.4
[2024-07-26 05:43] LABS: Basophils % 0.3 %; Eosinophils # 0.1 10^3/uL (0.0-0.8); Eosinophils % 0.9 %; Hematocrit 35.9 % (36-47); Lymphocytes # 2.3 10^3/uL (0.8-4.8); Lymphocytes % 21.9 %; Mean Corpuscular HGB Conc 33.1 g/dL (30-55); Mean Corpuscular Hemoglobin 27.2 pg (27-33); Mean Corpuscular Volume 82.2 fl (85-98); Mean Platelet Volume 10.4 fL (7.4-10.4); Monocytes # 0.7 10^3/uL (0.2-0.9); Monocytes % 6.3 %; Neutrophils # 7.36 10^3/uL (1.8-7.7); Neutrophils % 69.8 %; Nucleated Red Blood Cells % 0 %; Platelet Count 219 10^3/cmm (157-399); Red Blood Count 4.37 10^6/uL (3.85-5.65); Red Cell Distribution Width 13.7 % (12.1-15.1); White Blood Count 10.54 10^3/uL (3.29-11.43)
[2024-07-26] MEDS: lactated ringers 1,000 ML 999 ML IV (06:12)
--- NOTE | 2024-07-26 06:51 | P.HP_ITS ---
Providers/Chief Complaint 2 Admitting Physician: Camila Sen MD Primary Care Provider: Camila Sen MD History of Present Illness Mayda Johnston is a 28 year old female G6, P2 at 39 weeks 1 day gestation who is here for a scheduled repeat section. Review of Systems 2 Narrative: She has good movement, she denies any bleeding, contractions, loss of fluid. Medications/Allergies Home Medications Medication Instructions Recorded Confirmed Last Taken Type 1 tab PO DAILY 05/01/24 07/26/24 07/25/24 20:00 History aspirin 1 tab PO DAILY 05/01/24 07/26/24 07/25/24 20:00 History ondansetron HCl 4 mg tablet 4 mg PO Q6H PRN Nausea 06/11/24 07/26/24 07/25/24 20:00 History Allergies Allergy/AdvReac Type Severity Reaction Status Date / Time amoxicillin Allergy ALGY-Hives Verified 07/26/24 05:44 PFSH Acute 2 PFSH: Medical History (Updated 03/06/24 @ 00:01 by RAFFI Carrillo) Allergic pharyngitis Social History Smoking and tobacco/nicotine status: never used tobacco/nicotine Female Reproductive History: : 6 Para: 2 Spontaneous abortions: Y es Vitals/I&O/Wt Last Vital Signs Pulse 90 07/26/24 06:20 BP 118/72 07/26/24 06:20 O2 Del Method Room Air 07/26/24 05:45 Weight last 48 hrs Weight 118.388 kg Physical Exam 2 Narrative: Alert and oriented, resting in bed comfortably, heart regular rate and rhythm, lungs clear to auscultation bilaterally, abdomen is gravid and nontender, extremities have SCDs in place, trace edema but no calf tenderness Data 07/26/24 05:25 A&P Assessment and plan (1) History of section complicating : Patient is here today for repeat low-transverse section. Consents are in the chart. Plan Routine surgery and care Attestations 2 Medical Necessity Statement*: Routine surgery and care Coding Level of Care Code Acute Code for Chg Fwd Diagnoses History of section complicating O34.219
--- NOTE | 2024-07-26 06:55 | ANES.PREANE2 ---
Pre-Anesthetic Assessment Height/Weight: Height 1.65 m Weight 118.388 kg Pulse BP O2 Del Method 90 118/72 Room Air 07/26/24 06:20 07/26/24 06:20 07/26/24 05:45 Operation Date: 07/26/24 07:00 Proposed Procedures p Section Repeat(Not Applicable) - Camila Sen MD Familial anesthetic complications: None Was Beta Jojo taken within 24 hours: N/A Was Clonidine taken within 24 hours: N/A Last intake: Intake Last Liquid Date 07/25/24 Last Liquid Time 22:00 Last Solid Date 07/25/24 Last Solid Time 22:00 Social No alcohol and No tobacco Exam alert, oriented x 3, clear to auscultation bilaterally and regular rate & rhythm Airway Mallampati: Class III Dentition: chipped Metabolic Morbid Obesity Anesthetic Plan ASA status: 2 Anesthesia: Regional (specify below) Risk of > 500 ml blood loss (7ml/kg in children): Yes, adequate IV access and fluids planned Medications/Allergies Home Medications Medication Instructions Recorded Confirmed Last Taken Type 1 tab PO DAILY 05/01/24 07/26/24 07/25/24 20:00 History aspirin 1 tab PO DAILY 05/01/24 07/26/24 07/25/24 20:00 History ondansetron HCl 4 mg tablet 4 mg PO Q6H PRN Nausea 06/11/24 07/26/24 07/25/24 20:00 History Allergies Allergy/AdvReac Type Severity Reaction Status Date / Time amoxicillin Allergy ALGY-Hives Verified 07/26/24 05:44 [facility] Anesthesia Medical History (Updated 03/06/24 @ 00:01 by RAFFI Carrillo) Allergic pharyngitis Social History Smoking and tobacco/nicotine status: never used tobacco/nicotine Female Reproductive History : 6 Data Anesthesia 07/26/24 05:25 Short CBC 07/26/24 Range/Units 05:25 WBC 10.54 (3.29-11.43) 10^3/uL Hgb 11.90 (11.27-16.99) g/dL Hct 35.9 L (36-47) % MCV 82.2 L (85-98) fl Plt Count 219 (157-399) 10^3/cmm Neut % (Auto) 69.8 % Neut # (Auto) 7.36 (1.8-7.7) 10^3/uL Blood Bank 07/26/24 05:25 Blood Type A Positive Rho(D) Type Rh positive Antibody Screen Negative Cardiac Studies: No Data to Display
[2024-07-26] MEDS: metoclopramide 5 mg/mL SDV 2 mL 10 MG IVP (07:01)
[2024-07-26] MEDS: citric acid-sodium citrate 30 mL UDC PO (07:01)
[2024-07-26] MEDS: famotidine 20 mg/2 mL INJ IVP (07:01)
--- NOTE | 2024-07-26 08:17 | PM.OP ---
Operative Report Date of procedure: July 26, 2024 Pre-op diagnosis: IUP at 39 weeks 1 day gestation Repeat section Post-op diagnosis: IUP at 39 weeks 1 day gestation Repeat section Jagdeep breech presentation Procedure done: Repeat low-transverse section Via Pfannenstiel skin incision Specimens removed/disposition: Jagdeep breech female infant weight 4000 g Surgeon: Camila Sen MD Estimated blood loss (mL): 400 IV fluids (mL): 1,500 Urine output (mL): 50 Complications: None Procedure: After informed consent the patient was taken to the OR where spinal anesthesia was administered. She was prepped and draped in normal sterile fashion in dorsal spine position with a left lateral tilt. A Pfannenstiel skin incision was made through the prior scar and carried to the underlying layer of fascia sharply. The fascial incision was then extended laterally using the [place]. The fascia was grasped with [place] clamps and the underlying rectus muscles were dissected off taking care to avoid injury to the underlying tissue. The midline was very scarred and was entered sharply using the scalpel. The incision site was then manually stretched. The bladder blade was inserted. The vesicouterine peritoneum was identified and entered sharply using the [place]. The bladder flap was then created digitally. Uterine incision was made in a transverse fashion in the lower uterine segment. Amniotic rupture of membranes was performed digitally with a copious amount of clear fluid. The infant was delivered in jagdeep breech presentation using normal standard breech maneuvers. The was stunned at delivery. She was suctioned, the cord was clamped and cut and she was handed to the waiting pediatric team. Infant weight was 4000 g, 8 pounds 13 ounces, Apgars 5 and 8. The placenta was delivered grossly intact and normal to inspection using fundal pressure. After the placenta was removed the uterus was exteriorized from the abdomen and a dry sponge was used to clear the uterus of clots and debris. The uterine incision was then reapproximated using 0 chromic in a running locked fashion. A second layer of the same suture was used in an imbricating manner. There was good hemostasis. The uterus was then returned to the abdomen. Irrigation was used to clear the gutters of clots and debris. The uterine incision was reinspected for hemostasis. The peritoneum was then reapproximated using 4-0 Vicryl in a running fashion. The subfascial tissue was inspected for hemostasis and the fascia was then reapproximated using 0 Vicryl in a running fashion. The subcutaneous tissue was irrigated and any small bleeders were coagulated using the Bovie. The subcutaneous tissue was then reapproximated using 4-0 Vicryl in a running fashion. The skin was then reapproximated using 4-0 Vicryl in a running fashion on a Wilfredo needle. Steri-Strips and a pressure bandage were applied and patient went to recovery in good condition Sponge instrument and needle counts were correct.
[2024-07-26] MEDS: dextrose 5%-lactated ringers 1,000 ML 125 ML IV (09:15)
--- NOTE | 2024-07-26 09:15 | ANE.PACU2 ---
Inpatient post-anesthesia follow up: Airway intact: Yes Vital signs: Temperature 97.8 F Pulse Rate 95 Respiratory Rate 16 Blood Pressure 119/74 Pulse Oximetry 98 Oxygen Delivery Me thod Room Air Oxygen Flow Rate Fraction of Inspir ed Oxygen Hydration adequate: Yes Nausea and vomiting: No Pain level: 1 Mental status: Baseline
--- NOTE | 2024-07-26 10:33 | PC.NURSE ---
Patient recovering in OR with RN, significant other, and baby at this time.
[2024-07-26] MEDS: sodium chloride 0.9% 500 ML 999 ML IV (12:01)
[2024-07-26] MEDS: ketorolac 30 mg/mL INJ IVP ×2 (14:04→20:22)
[2024-07-26] MEDS: docusate sodium 100 mg Capsule PO (20:21)
[2024-07-26 21:27] LABS: Hematocrit 32.2 % (36-47); Mean Corpuscular HGB Conc 32.3 g/dL (30-55); Mean Corpuscular Hemoglobin 27.1 pg (27-33); Mean Corpuscular Volume 83.9 fl (85-98); Mean Platelet Volume 9.7 fL (7.4-10.4); Platelet Count 169 10^3/cmm (157-399); Red Blood Count 3.84 10^6/uL (3.85-5.65); Red Cell Distribution Width 13.8 % (12.1-15.1); White Blood Count 11.18 10^3/uL (3.29-11.43)
[2024-07-27] VITALS (7 sets, daily range): BP systolic 107–119; BP diastolic 63–75; PULSE 91–96; RESP 16; TEMP 35.7–36.9; O2SAT 96–97
[2024-07-27] MEDS: ketorolac 30 mg/mL INJ IVP (02:36)
[2024-07-27] MEDS: PRENATAL VIT NO.130/IRON/FOLIC 1 EACH TABLET PO (09:03)
[2024-07-27] MEDS: acetaminophen 325 mg Tablet 650 MG PO ×2 (09:03→16:48)
[2024-07-27] MEDS: docusate sodium 100 mg Capsule PO ×2 (09:03→20:43)
[2024-07-27] MEDS: ferrous sulfate EC 325 mg Tablet PO (09:04)
[2024-07-27] MEDS: ibuprofen 800 mg tablet PO ×3 (09:51→20:43)
[2024-07-27] MEDS: simethicone 80 mg Chew PO (09:51)
--- NOTE | 2024-07-27 16:23 | P.PN_ITS ---
Subjective 2 Subjective: She is ambulating and tolerating a regular diet. She has a little bit of burning pain but nothing too bad she states. Vitals/I&O/Wt Last Vital Signs Temp 96.3 F L 07/27/24 16:05 Pulse 93 07/27/24 16:06 Resp 16 07/27/24 03:57 BP 117/65 07/27/24 16:06 Pulse Ox 96 07/27/24 09:32 O2 Del Method Room Air 07/27/24 09:20 07/27/24 07/27/24 07/27/24 06:59 14:59 22:59 Intake Total 200 / 3320 Output Total 300 / 1360 Balance -100 / 1960 Weight last 48 hrs Weight 118.388 kg Physical Exam 2 Narrative: Alert and oriented, sitting up in bed, heart regular rate and rhythm, lungs clear to auscultation bilaterally, abdomen is soft with appropriate postoperative tenderness, incision is clean dry and intact with Steri-Strips in place. Extremities have trace edema and no calf tenderness Urinary Catheter Management: Vilchsi Latex: Cath Placed During This Visit: yes, but has since been removed by the nurse Reason for Continuing Indwelling Catheter: Decision to DC Catheter Urinary Catheter Date of Insertion: 07/26/24 Urinary Catheter Time of Insertion: 07:18 Date Urinary Catheter Removed: 07/26/24 Time Urinary Catheter Discontinued: 16:45 Data 07/26/24 21:21 A&P Assessment and plan (1) Status post primary low transverse section: Routine postoperative care. If still doing well likely discharge home tomorrow. Attestations 2 Medical Necessity Statement*: Routine postoperative care Coding Level of Care Code Acute Code for Chg Fwd Diagnoses Status post primary low transverse section Z98.891
[2024-07-27] MEDS: lanolin oint 7 gm 1 APPLIC TOPICAL (20:43)
[2024-07-28] MEDS: HYDROcodone-acetaminophen 5-325 mg Tablet PO ×3 (02:14→13:05)
[2024-07-28 04:29] VITALS: BP 133/82; PULSE 100
[2024-07-28 04:30] VITALS: TEMP 35.8
[2024-07-28] MEDS: ibuprofen 800 mg tablet PO (09:50)
[2024-07-28] MEDS: docusate sodium 100 mg Capsule PO (09:51)
[2024-07-28] MEDS: PRENATAL VIT NO.130/IRON/FOLIC 1 EACH TABLET PO (09:51)
[2024-07-28 09:52] VITALS: BP 120/74; PULSE 93
--- NOTE | 2024-07-28 13:24 | P.DS_ITS ---
Discharge Providers Date of Admission: 07/26/24 05:02 Date of Discharge: July 28, 2024 Attending Provider at Admission: Camila Sen MD Attending Provider at Discharge: Camila Sen MD Primary Care Provider: Camila Sen MD Diagnoses at Discharge Discharge Diagnosis (1) Status post primary low transverse section: Status: Acute Hospital Course Hospital Course This is a 28-year-old G6 now P3 who was admitted for a routine repeat section. She did well postoperatively. She was ambulating, tolerating a regular diet, had good pain control, had decreased vaginal bleeding. Physical Exam Narrative: Alert and oriented, sitting up in bed, heart regular rate and rhythm, lungs clear to auscultation bilaterally, abdomen is soft with appropriate postoperative tenderness, incision is clean dry and intact with Steri-Strips in place, extremities have trace edema but no calf tenderness Urinary Catheter Management: Vilchis Latex: Cath Placed During This Visit: yes, but has since been removed by the nurse Reason for Continuing Indwelling Catheter: Decision to DC Catheter Urinary Catheter Date of Insertion: 07/26/24 Urinary Catheter Time of Insertion: 07:18 Date Urinary Catheter Removed: 07/26/24 Time Urinary Catheter Discontinued: 16:45 Discharge Data Studies Completed and Pending Laboratory Results WBC 11.18 10^3/uL (3.29-11.43) 07/26/24 21:21 RBC 3.84 10^6/uL (3.85-5.65) L 07/26/24 21:21 Hgb 10.40 g/dL (11.27-16.99) L 07/26/24 21: Hct 32.2 % (36-47) L 07/26/24 21: MCV 83.9 fl (85-98) L 07/26/24 21:21 MCH 27.1 pg (27-33) 07/26/24 21: MCHC 32.3 g/dL (30-55) 07/26/24 21: RDW 13.8 % (12.1-15.1) 07/26/24 21:21 Plt Count 169 10^3/cmm (157-399) 07/26/24 21:21 MPV 9.7 fL (7.4-10.4) 07/26/24 21: Neut % (Auto) 69.8 % 07/26/24 05:25 Lymph % (Auto) 21.9 % 07/26/24 05:25 [place] % (Auto) 6.3 % 07/26/24 05:25 Eos % (Auto) 0.9 % 07/26/24 05:25 Baso % (Auto) 0.3 % 07/26/24 05:25 Neut # (Auto) 7.36 10^3/uL (1.8-7.7) 07/26/24 05:25 Lymph # (Auto) 2.3 10^3/uL (0.8-4.8) 07/26/24 05:25 [place] # (Auto) 0.7 10^3/uL (0.2-0.9) 07/26/24 05:25 Eos # (Auto) 0.1 10^3/uL (0.0-0.8) 07/26/24 05:25 Baso # (Auto) 0.0 10^3/uL (0.0-0.1) 07/26/24 05:25 Nucleated RBC % (auto) 0 % 07/26/24 05:25 Nucleated RBCs # 0.0 /100WBC 07/26/24 05:25 Blood Type A Positive 07/26/24 05:25 Rho(D) Type Rh positive 07/26/24 05:25 Antibody Screen Negative 07/26/24 05:25 Vitals Last Vital Signs Temp 96.4 F L 07/28/24 04:30 Pulse 93 07/28/24 09:52 Resp 16 07/27/24 03:57 BP 120/74 07/28/24 09:52 Pulse Ox 96 07/27/24 09:32 O2 Del Method Room Air 07/27/24 09:20 Discharge Plan Discharge Patient Disposition: Home Condition: Stable Prescriptions: New ibuprofen 800 mg Tablet 800 mg PO TID PRN (Reason: Abdominal Discomfort) Qty: 30 0RF hydrocodone-acetaminophen 5-325 mg Tablet 1 - 2 tab PO Q4H PRN (Reason: Moderate To Severe Pain) Qty: 12 0RF docusate sodium 100 mg Capsule 100 mg PO BID Qty: 60 0RF Continued 1 tab PO DAILY Discontinued aspirin 1 tab PO DAILY ondansetron HCl [Zofran] 4 mg Tablet 4 mg PO Q6H PRN (Reason: Nausea) Discharge Orders: Discharge Order (Routine); Ordered 07/28/24 Ordered By: Camila Sen Referrals: Camila Sen MD [Primary Care Provider] - 7-10 days Discharge Diet: Usual diet Discharge Activity: Limit activity as instructed Patient Instructions: Depression (DC), Opioid Safety (DC), Preeclampsia and Eclampsia After Delivery (GEN), Hemorrhage (DC), OB - Javier/Mckinley, OB Discharge Report, OB Food/Drug Interaction Guide, OB Care at Home, Opioid Safety, Abnormal Bleeding Discharge Attestations Time Spent in Discharge Care*: less than 30 min Quality Metrics Clinical Quality Measures [ No reported AMI, CVA or VTE this stay] Coding Level of Care Code Acute Code for Chg Fwd Diagnoses Status post primary low transverse section Z98.891
[2024-07-28 14:42] VITALS: BP 128/79; PULSE 93; RESP 17; TEMP 36.8; O2SAT 98
[2024-07-28 15:08] VITALS: PULSE 94; O2SAT 96
[2024-07-28 15:09] VITALS: BP 128/79; PULSE 93
== END 2024-07-28 15:15 | disposition home or self-care (01) | DRG 788 ==
PROVIDERS: Admitting Provider Family Medicine; PCP Family Medicine; Visit Provider Family Medicine
PROC: 10D00Z1 Extraction of Products of Conception, Low, Open Approach (ICD-10-PCS; CPT 59514; principal; 2024-07-26 07:00)
DX: O34.211 Maternal care for low transverse scar from previous cesarean delivery (principal); N85.8 Other specified noninflammatory disorders of uterus; Z3A.39 39 weeks gestation of pregnancy; Z37.0 Single live birth; O32.1XX0 Maternal care for breech presentation, not applicable or unspecified
CPT/HCPCS: 36415; 51702; 59409; 85025; 85027; 86850; 86900; 96374; 96376; 98960; J1885; J2274; J2371; J2405; J2765; J3010; J3490; J7030; J7040; J7120; J7121

== ENCOUNTER 2024-08-07 12:55 | Emergency (ER) | payer MEDICAID, SELFPAY ==
--- NOTE | 2024-08-07 12:56 | USR_ITS ---
PROCEDURE INFORMATION: Exam: US Duplex Left Lower Extremity Veins, Limited Exam date and time: 08/07/2024 2:20 PM Age: 28 years old Clinical indication: Pain; Leg, upper; Left; Additional info: Leg swelling TECHNIQUE: Imaging protocol: Real-time duplex ultrasound of the left extremity with 2-D ramsey scale, color Doppler flow and spectral waveform analysis including responses to compression and other maneuvers (when performed) with image documentation. Limited exam focused on the left lower extremity veins. COMPARISON: US OB >= 14 weeks fetus [id number] 03/24/2024 8:11 AM FINDINGS: Left deep veins: Unremarkable. The common femoral, femoral, proximal profunda femoral and popliteal veins as well as the visualized deep veins of the lower leg are patent without thrombus. Normal Doppler waveforms. Normal compressibility and/or augmentation response. Superficial veins: Greater saphenous vein at the saphenofemoral junction is patent without thrombus. Soft tissues: Unremarkable. US/[place] [id number] IMPRESSION: No evidence of deep vein thrombosis.
[2024-08-07 12:59] VITALS: BP 128/88; PULSE 83; RESP 17; TEMP 36.7; O2SAT 97; BMI 39.6
--- NOTE | 2024-08-07 14:19 | W.ED.EXTPRO ---
HPI - Extremity Problem General: Chief complaint: Extremity Problem,Nontraumatic Stated complaint: pain and swollen L. leg Time Seen by Provider: 08/07/24 14:03 Source: patient Mode of arrival: ambulatory Limitations: no limitations History of Present Illness: 20-year-old female who gave earliest month states that over the last 2 days she has had some pain in her left lower leg shooting down her ankle with some slight swelling states she is concerned about a blood clot she denies any injuries states pains mild in nature. Associated symptoms: Deny chest pain, fever(s) or rash Related Data Home Medications Medication Instructions Recorded Confirmed 1 tab PO DAILY 05/01/24 07/26/24 Previous Rx's Medication Instructions Recorded docusate sodium 100 mg capsule 100 mg PO BID #60 caps 07/28/24 hydrocodone 5 mg-acetaminophen 325 1 - 2 tab PO Q4H PRN Moderate To 07/28/24 mg tablet Severe Pain #12 tabs ibuprofen 800 mg tablet 800 mg PO TID PRN Abdominal 07/28/24 Discomfort #30 tabs Allergies Allergy/AdvReac Type Severity Reaction Status Date / Time amoxicillin Allergy ALGY-Hives Verified 07/26/24 05:44 Review of Systems Const: Denies: fever(s), chills, body aches or change in appetite ENMT: Denies: throat pain or dental pain Card: Denies: chest pain Resp: Denies: dyspnea GI: Denies: abdominal pain, nausea, vomiting or diarrhea Musc: Reports: extremity pain and extremity swelling; Denies: neck pain or back pain Skin/Breast: Denies: rash Neuro: Denies: headache(s) PFSH ED PFSH: Medical History (Updated 08/07/24 @ 14:39 by Madhu Sheehan MD) Allergic pharyngitis Social History Smoking and tobacco/nicotine status: never used tobacco/nicotine Female Reproductive History: Para: 2 Spontaneous abortions: Yes Physical Exam Const: COMMON NORMALS: no acute distress, patient oriented x3 and healthy appearing HENMT: COMMON NORMALS: normocephalic and atraumatic HEAD & SCALP: normocephalic and atraumatic Eye: COMMON NORMALS: conjunctivae normal CONJUNCTIVA: Yes conjunctivae normal Neck/C-Spine: COMMON NORMALS: full ROM and supple Chest: COMMONS NORMALS: normal inspection of the chest Resp: COMMON NORMALS: normal respiratory effort Cardio: COMMON NORMALS: regular rate RATE: regular rate Extremity: NARRATIVE EXTREMITY EXAM: Slight swelling noted to left lower leg distal pulses intact minimal tenderness Neuro: COMMON NORMALS: patient oriented x3, moves all extremities and no focal motor deficits Psych: COMMON NORMALS: mental status grossly normal, Normal thought process present and cooperative THOUGHT PROCESS: Normal thought process present Skin: COMMON NORMALS: no rashes or lesions noted and no wounds GENERAL SKIN EXAM: no rashes or lesions noted Course Vital Signs: Vital signs: Vital Signs Temperature 98.1 F 08/07/24 12:59 Pulse Rate 83 08/07/24 12:59 Respiratory Rate 17 08/07/24 12:59 Blood Pressure 128/88 08/07/24 12:59 Pulse Oximetry 97 08/07/24 12:59 Oxygen Delivery Me thod Room Air 08/07/24 12:59 MDM - Extremity (Nontraumatic) Medical Decision Making Patient presents here with some left leg pain exam shows some very mild swelling minimal tenderness no signs of cellulitis distal pulses intact her ultrasound here showed no DVT she stable for discharge follow-up with PCP return if worsening Medical Records I reviewed the patient's medical records. All radiology interpretation(s) finalized by discharge Discharge Plan Discharge Patient Disposition: Home Clinical Impression: Left leg pain Condition: Stable Prescriptions: No Action 1 tab PO DAILY ibuprofen 800 mg Tablet 800 mg PO TID PRN (Reason: Abdominal Discomfort) Qty: 30 0RF hydrocodone-acetaminophen 5-325 mg Tablet 1 - 2 tab PO Q4H PRN (Reason: Moderate To Severe Pain) Qty: 12 0RF docusate sodium 100 mg Capsule 100 mg PO BID Qty: 60 0RF Discharge Orders: Discharge ED (Routine); Ordered 08/07/24 Ordered By: Madhu Sheehan Referrals: Camila Sen MD [Primary Care Provider] - 4-7 days Discharge Diet: Advance as tolerated Discharge Activity: Resume usual activity Patient Instructions: Leg Pain (ED) Coding Level of Care Code ED [employer] for Blake Beckwith
[2024-08-07 14:43] VITALS: BP 123/82; PULSE 81; O2SAT 96
[2024-08-07 14:48] VITALS: BP 123/93; PULSE 84; O2SAT 97
== END 2024-08-07 14:54 | disposition home or self-care (01) ==
PROVIDERS: Emergency Provider Emergency Medicine; PCP Family Medicine
DX: M79.605 Pain in left leg (principal)
CPT/HCPCS: 93971; 99284